=== PATIENT | male | born 1965 | race Caucasian/White ===

== ENCOUNTER 2018-01-24 17:20 | Emergency (ER) | payer SELFPAY ==
[~2018-01-24] VITALS: Ht 167.6 cm; Wt 82.0 kg
[2018-01-24] MEDS ORDERED: IBUPROFEN 800MG TABLET PO ONE (20:15)
[2018-01-24 20:24] VITALS: BP 125/75
== END 2018-01-24 20:25 | disposition home or self-care (01) ==
LOC: ER 17:20
DX: S69.81XA Other specified injuries of right wrist, hand and finger(s), initial encounter (principal); W22.8XXA Striking against or struck by other objects, initial encounter; Y93.89 Activity, other specified; Y92.89 Other specified places as the place of occurrence of the external cause
CPT/HCPCS: 29125; 73140; 99284

== ENCOUNTER 2021-07-23 22:25 | Inpatient (IN) | payer MEDICARE, MEDICAID ==
[~2021-07-23] VITALS: Ht 175.3 cm; Wt 68.0 kg
[2021-07-23] MEDS ORDERED: SODIUM CHLORIDE 0.9% 1000ML BAG (SEPSIS BOLUS) IV ONE (23:30)
[2021-07-23 23:58] LABS: HEMATOCRIT. 29.9 % (42.0-52.0); MEAN CORPUSCULAR HEMOGLOBIN 29.2 pg (28.0-32.0); MEAN CORPUSCULAR VOLUME 87.2 fL (80.0-94.0); MEAN PLATELET VOLUME 7.5 fl (7.4-10.4); PLATELET 607 x1000/uL (130-400); RED BLOOD CELL COUNT 3.42 mill/uL (4.7-6.1); RED CELL DISTRIBUTION WIDTH 14.2 % (11.6-14.6)
[2021-07-24] LABS: CHLORIDE 92 mEq/L (98-107)
[2021-07-24] MEDS ORDERED: PIPERACILLIN/TAZ 3.375G PREMIX 50 ML IV SCH (00:45)
[2021-07-24] MEDS ORDERED: VANCOMYCIN 1G PREMIX 200 ML IV SCH ×2 (00:45→12:00)
[2021-07-24] MEDS ORDERED: PIPERACILLIN/TAZOBACTAM 3.375 G in DEXTROSE 5% WATER 50 ML IV SCH (03:00)
[2021-07-24 05:29] LABS: PLATELET ESTIMATE INCREASED
[2021-07-24 07:56] LABS: CLARITY URINE CLEAR (CLEAR); COLOR URINE YELLOW (YELLOW); KETONES URINE TRACE (NEGATIVE); LEUKOCYTE ESTERASE URINE NEGATIVE (NEGATIVE); NITRITE URINE NEGATIVE (NEGATIVE); OCCULT BLOOD URINE 1+ (NEGATIVE); PH URINE 5.5 (4.5-8.0); PROTEIN URINE 1+ (NEGATIVE); SPECIFIC GRAVITY URINE 1.034 (1.005-1.030)
[2021-07-24 08:32] LABS: *AMPHETAMINES SCREEN URINE PRESUMTIVE POSITIVE (NEGATIVE); *BARBITURATES SCREEN URINE NEGATIVE (NEGATIVE); *BENZODIAZEPINES SCREEN URINE NEGATIVE (NEGATIVE); *COCAINE SCREEN URINE NEGATIVE (NEGATIVE)
[2021-07-24 08:33] LABS: CANNABINOID URINE SCREEN NEGATIVE (NEGATIVE); METHADONE URINE SCREEN NEGATIVE (NEGATIVE); OPIATES URINE SCREEN PRESUMTIVE POSITIVE (NEGATIVE); PHENCYCLIDINE URINE SCREEN NEGATIVE (NEGATIVE)
[2021-07-24] MEDS ORDERED: ONDANSETRON HCL 4MG/2ML INJ IV PRN (09:30)
[2021-07-24 10:00] VITALS: BP 95/56
[2021-07-24 12:00] VITALS: BP 96/60
[2021-07-24] MEDS: PIPERACILLIN/TAZOBACTAM 3.375 G in DEXTROSE 5% WATER 50 ML IV SCH ×2 (13:51→21:54)
[2021-07-24 16:00] VITALS: BP 93/61
[2021-07-24] MEDS ORDERED: BENZ100C86 PO (16:51)
[2021-07-24] MEDS ORDERED: ALBU6.7H9 INH (16:51)
[2021-07-24] MEDS: ENOXAPARIN 40MG/0.4ML SYR SUBCUT SCH (17:59)
[2021-07-24 20:00] VITALS: BP 89/54
[2021-07-24] MEDS: VANCOMYCIN 1G PREMIX 200 ML IV SCH (20:13)
[2021-07-24] MEDS ORDERED: DEXTROSE 50% WATER 50ML SYRINGE IV PRN (21:15)
[2021-07-25] VITALS (40 sets, daily range): BP systolic 80–107; BP diastolic 52–68
[2021-07-25 03:38] LABS: MEAN CORPUSCULAR HEMOGLOBIN 28.6 pg (28.0-32.0); MEAN CORPUSCULAR VOLUME 86.1 fL (80.0-94.0); MEAN PLATELET VOLUME 7.8 fl (7.4-10.4); PLATELET 536 x1000/uL (130-400); RED BLOOD CELL COUNT 3.14 mill/uL (4.7-6.1); RED CELL DISTRIBUTION WIDTH 14.4 % (11.6-14.6)
[2021-07-25 03:52] LABS: CHLORIDE 95 mEq/L (98-107)
[2021-07-25] MEDS: VANCOMYCIN 1G PREMIX 200 ML IV SCH ×2 (06:48→20:28)
[2021-07-25] MEDS: PIPERACILLIN/TAZOBACTAM 3.375 G in DEXTROSE 5% WATER 50 ML IV SCH ×3 (06:49→21:59)
[2021-07-25] MEDS: BLOOD SUGAR DIAGNOSTIC STRIP TEST SCH ×4 (06:49→21:51)
[2021-07-25] MEDS: INSULIN LISPRO 100 UNITS/ML SUBCUT SCH ×4 (07:47→22:00)
[2021-07-25] MEDS: IPRATROPIUM/ALBUTEROL 0.5-3(2.5)MG/3ML NEB HHN SCH ×3 (08:53→23:55)
[2021-07-25 09:25] LABS: BG BASE EXCESS 3.9 mmol/L (-2.0-2.0); BG CARBOXYHEMOGLOBIN 0.1 % (0.5-1.5); BG DEOXYHEMOGLOBIN 15.7 % (0.0-5.0); BG FRACTION INSPIRED OXYGEN 100; BG HCO3 ACT 29.8 mmol/L (22.0-26.0); BG METHEMOGLOBIN 0.3 % (0.0-1.5); BG OXYGEN SATURATION 84.2 % (92.0-98.5); BG OXYHEMOGLOBIN 83.9 % (94.0-97.0); BG PH 7.376 (7.350-7.450); BG PO2 48.8 mmHg (75.0-100.0); BG SAMPLE SITE RIGHT RADIAL; BG TOTAL HEMOGLOBIN 9.9 g/dL (12.0-18.0); BG VENT MODE MASK - NRB
[2021-07-25 11:08] LABS: BG BASE EXCESS 2.8 mmol/L (-2.0-2.0); BG CARBOXYHEMOGLOBIN 0.3 % (0.5-1.5); BG DEOXYHEMOGLOBIN 8.6 % (0.0-5.0); BG FRACTION INSPIRED OXYGEN 100; BG HCO3 ACT 27.7 mmol/L (22.0-26.0); BG OXYGEN SATURATION 91.4 % (92.0-98.5); BG OXYHEMOGLOBIN 91.1 % (94.0-97.0); BG PCO2 44.3 mmHg (35.0-45.0); BG PH 7.414 (7.350-7.450); BG PO2 61.4 mmHg (75.0-100.0); BG SAMPLE SITE RIGHT RADIAL; BG TOTAL HEMOGLOBIN 9.5 g/dL (12.0-18.0); BG VENT MODE MASK - BIPAP
[2021-07-25] MEDS ORDERED: PHENYLEPHRINE 50 MG in DEXT 5% WATER 245 ML IV PRN (11:45)
[2021-07-25] MEDS: SODIUM CHLORIDE 0.9% 1,000 ML IV SCH ×3 (12:00→13:00)
[2021-07-25] MEDS ORDERED: INSULIN GLARGINE 100 UNITS/ML SUBCUT NR (12:00)
[2021-07-25 16:13] LABS: PLATELET ESTIMATE INCREASED
[2021-07-25] MEDS: ENOXAPARIN 40MG/0.4ML SYR SUBCUT SCH (17:20)
[2021-07-25] MEDS: INSULIN GLARGINE 100 UNITS/ML SUBCUT SCH (22:00)
[2021-07-26] VITALS (74 sets, daily range): BP systolic 75–123; BP diastolic 45–74
[2021-07-26] MEDS: ACETAMINOPHEN 325MG TABLET PO PRN (00:20)
[2021-07-26] MEDS: IPRATROPIUM/ALBUTEROL 0.5-3(2.5)MG/3ML NEB HHN SCH ×5 (04:00→20:27)
[2021-07-26 05:51] LABS: CHLORIDE 99 mEq/L (98-107)
[2021-07-26] MEDS: PIPERACILLIN/TAZOBACTAM 3.375 G in DEXTROSE 5% WATER 50 ML IV SCH ×3 (06:01→21:00)
[2021-07-26] MEDS: SODIUM CHLORIDE 0.9% 1,000 ML IV SCH ×2 (06:02→16:42)
[2021-07-26 06:38] LABS: HEMATOCRIT. 22.9 % (42.0-52.0); HEMOGLOBIN. 7.8 g/dL (14.0-18.0); MEAN CORPUSCULAR HEMOGLOBIN 29.3 pg (28.0-32.0); MEAN CORPUSCULAR VOLUME 85.8 fL (80.0-94.0); PLATELET 459 x1000/uL (130-400); RED BLOOD CELL COUNT 2.67 mill/uL (4.7-6.1); RED CELL DISTRIBUTION WIDTH 14.2 % (11.6-14.6)
[2021-07-26] MEDS: BLOOD SUGAR DIAGNOSTIC STRIP TEST SCH ×4 (06:50→21:00)
[2021-07-26] MEDS: INSULIN LISPRO 100 UNITS/ML SUBCUT SCH ×4 (06:56→21:00)
[2021-07-26] MEDS: VANCOMYCIN 1G PREMIX 200 ML IV SCH (08:49)
[2021-07-26 09:03] LABS: PLATELET ESTIMATE INCREASED
[2021-07-26 09:36] LABS: BG CARBOXYHEMOGLOBIN 0.4 % (0.5-1.5); BG DEOXYHEMOGLOBIN 0.3 % (0.0-5.0); BG FRACTION INSPIRED OXYGEN 100; BG HCO3 ACT 25.8 mmol/L (22.0-26.0); BG METHEMOGLOBIN 0.3 % (0.0-1.5); BG OXYGEN SATURATION 99.7 % (92.0-98.5); BG PCO2 47.4 mmHg (35.0-45.0); BG PH 7.353 (7.350-7.450); BG PO2 176.9 mmHg (75.0-100.0); BG SAMPLE SITE RIGHT RADIAL; BG TOTAL HEMOGLOBIN 8.6 g/dL (12.0-18.0); BG TOTAL RESPIRATORY RATE 37 b/min; BG VENT MODE MASK - BIPAP
[2021-07-26] MEDS ORDERED: SODIUM CHLORIDE 10% FOR INH 15ML VIAL NEB INH NR (12:00)
[2021-07-26] MEDS: MIDODRINE HCL 5MG TABLET PO SCH ×2 (12:09→16:43)
[2021-07-26] MEDS: INSULIN GLARGINE 100 UNITS/ML SUBCUT SCH ×2 (12:11→22:06)
[2021-07-26] MEDS ORDERED: LIDOCAINE HCL/PF 1% 10 MG/ML 5ML VIAL ONE (12:49)
[2021-07-26] MEDS ORDERED: BUPIVACAINE HCL 0.25% (2.5MG/ML) 50ML INFIL NR (15:00)
[2021-07-26] MEDS ORDERED: LIDOCAINE HCL 1% 30ML VIAL (10MG/ML) INFIL NR (15:00)
[2021-07-26] MEDS: ENOXAPARIN 40MG/0.4ML SYR SUBCUT SCH (16:42)
[2021-07-27] VITALS (48 sets, daily range): BP systolic 89–121; BP diastolic 52–69
[2021-07-27] MEDS ORDERED: VANCOMYCIN 1G PREMIX 200 ML IV SCH
[2021-07-27] MEDS: ACETYLCYSTEINE 100MG/ML 10% VIAL 4ML INH SCH ×3 (00:23→15:57)
[2021-07-27] MEDS: IPRATROPIUM/ALBUTEROL 0.5-3(2.5)MG/3ML NEB HHN SCH ×6 (00:23→21:34)
[2021-07-27] MEDS: SODIUM CHLORIDE 0.9% 1,000 ML IV SCH (04:17)
[2021-07-27] MEDS: PIPERACILLIN/TAZOBACTAM 3.375 G in DEXTROSE 5% WATER 50 ML IV SCH ×3 (05:38→21:44)
[2021-07-27 05:48] LABS: CHLORIDE 99 mEq/L (98-107)
[2021-07-27 05:50] LABS: HEMATOCRIT. 22.4 % (42.0-52.0); HEMOGLOBIN. 7.7 g/dL (14.0-18.0); LYMPHOCYTES % 8.3 % (20.0-50.0); MEAN CORPUSCULAR HEMOGLOBIN 29.5 pg (28.0-32.0); MEAN CORPUSCULAR VOLUME 86.1 fL (80.0-94.0); MEAN PLATELET VOLUME 7.7 fl (7.4-10.4); MONOCYTES % 10.9 % (2.0-8.0); NEUTROPHILS % 80.8 % (40.0-76.0); PLATELET 409 x1000/uL (130-400); RED CELL DISTRIBUTION WIDTH 14.7 % (11.6-14.6)
[2021-07-27] MEDS: BLOOD SUGAR DIAGNOSTIC STRIP TEST SCH ×4 (06:08→21:31)
[2021-07-27] MEDS: INSULIN LISPRO 100 UNITS/ML SUBCUT SCH ×4 (06:35→21:00)
[2021-07-27] MEDS: ZINC SULFATE 220 MG ( 50 ) CAPSULE PO SCH (08:28)
[2021-07-27] MEDS: MIDODRINE HCL 5MG TABLET PO SCH ×3 (08:28→16:37)
[2021-07-27] MEDS: ASCORBIC ACID 500 MG TABLET PO SCH (08:29)
[2021-07-27 09:20] LABS: BG BASE EXCESS -1.1 mmol/L (-2.0-2.0); BG CARBOXYHEMOGLOBIN 0.3 % (0.5-1.5); BG DEOXYHEMOGLOBIN 0.3 % (0.0-5.0); BG FRACTION INSPIRED OXYGEN 100; BG HCO3 ACT 23.5 mmol/L (22.0-26.0); BG METHEMOGLOBIN 0.2 % (0.0-1.5); BG OXYGEN SATURATION 99.7 % (92.0-98.5); BG OXYHEMOGLOBIN 99.2 % (94.0-97.0); BG PCO2 38.2 mmHg (35.0-45.0); BG PH 7.406 (7.350-7.450); BG PO2 224.6 mmHg (75.0-100.0); BG SAMPLE SITE RIGHT RADIAL; BG TOTAL HEMOGLOBIN 8.6 g/dL (12.0-18.0); BG TOTAL RESPIRATORY RATE 23 b/min; BG VENT MODE MASK - BIPAP
[2021-07-27] MEDS: INSULIN GLARGINE 100 UNITS/ML SUBCUT SCH ×2 (10:32→22:22)
[2021-07-27] MEDS ORDERED: VANCOMYCIN 750MG PREMIX 150 ML IV SCH (11:00)
[2021-07-27] MEDS: ACETAMINOPHEN 325MG TABLET PO PRN (11:04)
[2021-07-27] MEDS: ENOXAPARIN 40MG/0.4ML SYR SUBCUT SCH (16:38)
[2021-07-28] VITALS (49 sets, daily range): BP systolic 101–134; BP diastolic 57–76
[2021-07-28] MEDS: IPRATROPIUM/ALBUTEROL 0.5-3(2.5)MG/3ML NEB HHN SCH ×6 (01:42→20:55)
[2021-07-28] MEDS: ACETYLCYSTEINE 100MG/ML 10% VIAL 4ML INH SCH ×3 (01:42→16:10)
[2021-07-28] MEDS: PIPERACILLIN/TAZOBACTAM 3.375 G in DEXTROSE 5% WATER 50 ML IV SCH ×3 (05:36→21:41)
[2021-07-28 05:52] LABS: HEMATOCRIT. 22.4 % (42.0-52.0); HEMOGLOBIN. 7.4 g/dL (14.0-18.0); MEAN CORPUSCULAR HEMOGLOBIN 28.3 pg (28.0-32.0); MEAN CORPUSCULAR VOLUME 86.1 fL (80.0-94.0); MEAN PLATELET VOLUME 7.7 fl (7.4-10.4); PLATELET 387 x1000/uL (130-400); RED CELL DISTRIBUTION WIDTH 15.1 % (11.6-14.6)
[2021-07-28 06:11] LABS: CHLORIDE 98 mEq/L (98-107)
[2021-07-28] MEDS: BLOOD SUGAR DIAGNOSTIC STRIP TEST SCH ×4 (06:30→21:34)
[2021-07-28] MEDS: INSULIN LISPRO 100 UNITS/ML SUBCUT SCH ×4 (07:00→21:40)
[2021-07-28] MEDS: ACETAMINOPHEN 325MG TABLET PO PRN ×3 (07:47→21:41)
[2021-07-28] MEDS: ASCORBIC ACID 500 MG TABLET PO SCH (08:43)
[2021-07-28] MEDS: ZINC SULFATE 220 MG ( 50 ) CAPSULE PO SCH (08:43)
[2021-07-28] MEDS: MIDODRINE HCL 5MG TABLET PO SCH ×3 (08:43→17:12)
[2021-07-28] MEDS: GUAIFENESIN 600MG ER TABLET PO PRN (08:43)
[2021-07-28] MEDS: INSULIN GLARGINE 100 UNITS/ML SUBCUT SCH ×2 (09:42→21:40)
[2021-07-28 14:30] LABS: NUCLEATED RED BLOOD CELLS 1 /100 WBC; PLATELET ESTIMATE NORMAL
[2021-07-28] MEDS: SODIUM CHLORIDE 3% FOR INH 4ML UD NEB INH SCH ×2 (16:47→23:20)
[2021-07-28] MEDS: ENOXAPARIN 40MG/0.4ML SYR SUBCUT SCH (17:11)
[2021-07-28 18:40] LABS: HEMATOCRIT 22.8 % (42.0-52.0); HEMOGLOBIN 7.5 g/dL (14.0-18.0)
[2021-07-29] VITALS (44 sets, daily range): BP systolic 114–133; BP diastolic 61–78
[2021-07-29] MEDS: ACETYLCYSTEINE 100MG/ML 10% VIAL 4ML INH SCH ×2 (00:18→17:49)
[2021-07-29] MEDS: SODIUM CHLORIDE 3% FOR INH 4ML UD NEB INH SCH (00:19)
[2021-07-29] MEDS: IPRATROPIUM/ALBUTEROL 0.5-3(2.5)MG/3ML NEB HHN SCH ×4 (00:19→21:04)
[2021-07-29 00:48] LABS: HEMATOCRIT 24.7 % (42.0-52.0); HEMOGLOBIN 8.3 g/dL (14.0-18.0)
[2021-07-29] MEDS: PIPERACILLIN/TAZOBACTAM 3.375 G in DEXTROSE 5% WATER 50 ML IV SCH ×3 (06:11→21:12)
[2021-07-29] MEDS: BLOOD SUGAR DIAGNOSTIC STRIP TEST SCH ×4 (06:11→21:01)
[2021-07-29] MEDS: INSULIN LISPRO 100 UNITS/ML SUBCUT SCH ×4 (06:15→21:13)
[2021-07-29 06:28] LABS: HEMATOCRIT. 25.3 % (42.0-52.0); HEMOGLOBIN. 8.6 g/dL (14.0-18.0); MEAN CORPUSCULAR VOLUME 85.2 fL (80.0-94.0); MEAN PLATELET VOLUME 7.8 fl (7.4-10.4); PLATELET 377 x1000/uL (130-400); RED BLOOD CELL COUNT 2.97 mill/uL (4.7-6.1); RED CELL DISTRIBUTION WIDTH 14.9 % (11.6-14.6)
[2021-07-29 06:32] LABS: CHLORIDE 96 mEq/L (98-107)
[2021-07-29 06:53] LABS: PLATELET ESTIMATE NORMAL
[2021-07-29 07:54] LABS: BG BASE EXCESS 4.5 mmol/L (-2.0-2.0); BG CARBOXYHEMOGLOBIN 0.3 % (0.5-1.5); BG DEOXYHEMOGLOBIN 3.7 % (0.0-5.0); BG METHEMOGLOBIN 0.3 % (0.0-1.5); BG OXYGEN SATURATION 96.3 % (92.0-98.5); BG OXYHEMOGLOBIN 95.7 % (94.0-97.0); BG PCO2 37.1 mmHg (35.0-45.0); BG PH 7.496 (7.350-7.450); BG PO2 72.8 mmHg (75.0-100.0); BG SAMPLE SITE LEFT RADIAL; BG TOTAL HEMOGLOBIN 8.6 g/dL (12.0-18.0); BG VENT MODE MASK - BIPAP
[2021-07-29] MEDS: ASCORBIC ACID 500 MG TABLET PO SCH (10:01)
[2021-07-29] MEDS: MIDODRINE HCL 5MG TABLET PO SCH ×3 (10:01→17:02)
[2021-07-29] MEDS: ZINC SULFATE 220 MG ( 50 ) CAPSULE PO SCH (10:01)
[2021-07-29] MEDS: INSULIN GLARGINE 100 UNITS/ML SUBCUT SCH ×2 (10:06→21:12)
[2021-07-29] MEDS: ACETAMINOPHEN 325MG TABLET PO PRN (11:57)
[2021-07-29 13:28] LABS: HEMATOCRIT 24.9 % (42.0-52.0); HEMOGLOBIN 8.5 g/dL (14.0-18.0)
[2021-07-29] MEDS: ENOXAPARIN 40MG/0.4ML SYR SUBCUT SCH (17:03)
[2021-07-29 20:13] LABS: HEMATOCRIT 28.7 % (42.0-52.0); HEMOGLOBIN 9.7 g/dL (14.0-18.0)
[2021-07-30] VITALS (13 sets, daily range): BP systolic 115–129; BP diastolic 62–73
[2021-07-30] MEDS: ACETAMINOPHEN 325MG TABLET PO PRN ×4 (00:06→21:08)
[2021-07-30 01:01] LABS: HEMATOCRIT 24.9 % (42.0-52.0); HEMOGLOBIN 8.3 g/dL (14.0-18.0)
[2021-07-30] MEDS: IPRATROPIUM/ALBUTEROL 0.5-3(2.5)MG/3ML NEB HHN SCH ×7 (01:16→23:57)
[2021-07-30] MEDS: ACETYLCYSTEINE 100MG/ML 10% VIAL 4ML INH SCH ×3 (01:17→23:58)
[2021-07-30] MEDS: PIPERACILLIN/TAZOBACTAM 3.375 G in DEXTROSE 5% WATER 50 ML IV SCH ×3 (05:10→21:09)
[2021-07-30] MEDS ORDERED: BLOOD SUGAR DIAGNOSTIC STRIP TEST SCH (06:30)
[2021-07-30 06:53] LABS: HEMATOCRIT. 24.2 % (42.0-52.0); HEMOGLOBIN. 8.1 g/dL (14.0-18.0); MEAN CORPUSCULAR HEMOGLOBIN 28.6 pg (28.0-32.0); MEAN CORPUSCULAR VOLUME 84.9 fL (80.0-94.0); MEAN PLATELET VOLUME 7.8 fl (7.4-10.4); PLATELET 350 x1000/uL (130-400); RED BLOOD CELL COUNT 2.85 mill/uL (4.7-6.1); RED CELL DISTRIBUTION WIDTH 14.5 % (11.6-14.6)
[2021-07-30] MEDS: BLOOD SUGAR DIAGNOSTIC STRIP TEST SCH ×7 (07:00→20:33)
[2021-07-30 07:07] LABS: CHLORIDE 95 mEq/L (98-107)
[2021-07-30] MEDS: ZINC SULFATE 220 MG ( 50 ) CAPSULE PO SCH (08:14)
[2021-07-30] MEDS: ASCORBIC ACID 500 MG TABLET PO SCH (08:14)
[2021-07-30] MEDS: INSULIN LISPRO 100 UNITS/ML SUBCUT SCH ×4 (08:17→21:09)
[2021-07-30] MEDS: MIDODRINE HCL 5MG TABLET PO SCH ×3 (08:17→19:14)
[2021-07-30] MEDS ORDERED: VANCOMYCIN 1.25GM PMX (XELLIA) 250 ML IV SCH (13:00)
[2021-07-30 13:04] LABS: PLATELET ESTIMATE NORMAL
[2021-07-30] MEDS: INSULIN GLARGINE 100 UNITS/ML SUBCUT SCH ×2 (14:15→21:16)
[2021-07-30 16:59] LABS: HEMATOCRIT 23.8 % (42.0-52.0)
[2021-07-30] MEDS: ENOXAPARIN 40MG/0.4ML SYR SUBCUT SCH (19:11)
[2021-07-30 20:35] LABS: HEMATOCRIT 24.2 % (42.0-52.0); HEMOGLOBIN 8.1 g/dL (14.0-18.0)
[2021-07-30] MEDS: GUAIFENESIN 600MG ER TABLET PO PRN (21:09)
[2021-07-31] VITALS (11 sets, daily range): BP systolic 109–132; BP diastolic 55–68
[2021-07-31] MEDS ORDERED: VANCOMYCIN 750 MG in DEXT 5% WATER 250 ML IV SCH (01:00)
[2021-07-31 01:28] LABS: HEMATOCRIT 22.9 % (42.0-52.0); HEMOGLOBIN 7.9 g/dL (14.0-18.0)
[2021-07-31] MEDS: IPRATROPIUM/ALBUTEROL 0.5-3(2.5)MG/3ML NEB HHN SCH ×5 (03:45→21:30)
[2021-07-31] MEDS: PIPERACILLIN/TAZOBACTAM 3.375 G in DEXTROSE 5% WATER 50 ML IV SCH ×3 (05:52→22:05)
[2021-07-31 06:56] LABS: HEMATOCRIT. 24.2 % (42.0-52.0); HEMOGLOBIN. 8.1 g/dL (14.0-18.0); MEAN CORPUSCULAR HEMOGLOBIN 28.6 pg (28.0-32.0); MEAN CORPUSCULAR VOLUME 85.1 fL (80.0-94.0); MEAN PLATELET VOLUME 7.6 fl (7.4-10.4); PLATELET 352 x1000/uL (130-400); RED BLOOD CELL COUNT 2.84 mill/uL (4.7-6.1); RED CELL DISTRIBUTION WIDTH 14.7 % (11.6-14.6)
[2021-07-31 07:08] LABS: CHLORIDE 96 mEq/L (98-107)
[2021-07-31] MEDS: BLOOD SUGAR DIAGNOSTIC STRIP TEST SCH ×4 (07:30→20:33)
[2021-07-31] MEDS: ACETAMINOPHEN 325MG TABLET PO PRN ×3 (07:46→20:26)
[2021-07-31] MEDS: ACETYLCYSTEINE 100MG/ML 10% VIAL 4ML INH SCH ×2 (07:53→15:40)
[2021-07-31] MEDS: INSULIN LISPRO 100 UNITS/ML SUBCUT SCH ×4 (08:00→20:36)
[2021-07-31] MEDS: ASCORBIC ACID 500 MG TABLET PO SCH (08:49)
[2021-07-31] MEDS: ZINC SULFATE 220 MG ( 50 ) CAPSULE PO SCH (08:49)
[2021-07-31] MEDS: MIDODRINE HCL 5MG TABLET PO SCH ×3 (08:50→18:20)
[2021-07-31] MEDS ORDERED: BUPIVACAINE HCL/PF 0.25% (2.5MG/ML) 10ML INFIL SCH (10:00)
[2021-07-31] MEDS ORDERED: LIDOCAINE HCL 1% 50ML VIAL (10MG/ML) INFIL SCH (10:00)
[2021-07-31] MEDS: INSULIN GLARGINE 100 UNITS/ML SUBCUT SCH ×2 (10:33→20:36)
[2021-07-31 12:59] LABS: HEMATOCRIT 24.7 % (42.0-52.0); HEMOGLOBIN 8.3 g/dL (14.0-18.0)
[2021-07-31] MEDS ORDERED: AZITHROMYCIN 500 MG TABLET PO NR (17:00)
[2021-07-31] MEDS: ENOXAPARIN 40MG/0.4ML SYR SUBCUT SCH (18:19)
[2021-07-31] MEDS: GUAIFENESIN 600MG ER TABLET PO PRN (21:27)
[2021-07-31 22:28] LABS: BG BASE EXCESS 4.5 mmol/L (-2.0-2.0); BG CARBOXYHEMOGLOBIN 0.3 % (0.5-1.5); BG DEOXYHEMOGLOBIN 7.2 % (0.0-5.0); BG FRACTION INSPIRED OXYGEN 40; BG HCO3 ACT 28.5 mmol/L (22.0-26.0); BG METHEMOGLOBIN 0.1 % (0.0-1.5); BG OXYGEN SATURATION 92.8 % (92.0-98.5); BG OXYHEMOGLOBIN 92.4 % (94.0-97.0); BG PCO2 40.4 mmHg (35.0-45.0); BG PH 7.467 (7.350-7.450); BG PO2 65.6 mmHg (75.0-100.0); BG SAMPLE SITE LEFT RADIAL; BG TOTAL HEMOGLOBIN 9.9 g/dL (12.0-18.0); BG VENT MODE MASK - BIPAP
[2021-08-01] VITALS (12 sets, daily range): BP systolic 108–133; BP diastolic 56–83
[2021-08-01] MEDS: IPRATROPIUM/ALBUTEROL 0.5-3(2.5)MG/3ML NEB HHN SCH ×6 (00:52→20:10)
[2021-08-01 00:55] LABS: HEMOGLOBIN 8.2 g/dL (14.0-18.0)
[2021-08-01] MEDS: PIPERACILLIN/TAZOBACTAM 3.375 G in DEXTROSE 5% WATER 50 ML IV SCH ×3 (05:11→21:15)
[2021-08-01 06:40] LABS: HEMATOCRIT 24.3 % (42.0-52.0)
[2021-08-01 06:50] LABS: CHLORIDE 92 mEq/L (98-107)
[2021-08-01] MEDS: ACETYLCYSTEINE 100MG/ML 10% VIAL 4ML INH SCH ×2 (07:28→15:23)
[2021-08-01] MEDS: BLOOD SUGAR DIAGNOSTIC STRIP TEST SCH ×4 (07:30→21:30)
[2021-08-01 07:59] LABS: PLATELET ESTIMATE NORMAL
[2021-08-01] MEDS: MIDODRINE HCL 5MG TABLET PO SCH ×3 (09:03→17:37)
[2021-08-01] MEDS: ZINC SULFATE 220 MG ( 50 ) CAPSULE PO SCH (09:03)
[2021-08-01] MEDS: ASCORBIC ACID 500 MG TABLET PO SCH (09:03)
[2021-08-01] MEDS: AZITHROMYCIN 250 MG TABLET PO SCH (09:03)
[2021-08-01] MEDS: INSULIN LISPRO 100 UNITS/ML SUBCUT SCH ×4 (09:04→21:33)
[2021-08-01] MEDS: ACETAMINOPHEN 325MG TABLET PO PRN ×2 (11:36→16:20)
[2021-08-01] MEDS: INSULIN GLARGINE 100 UNITS/ML SUBCUT SCH ×2 (11:40→21:34)
[2021-08-01 13:40] LABS: HEMATOCRIT. 24.8 % (42.0-52.0); HEMOGLOBIN. 8.4 g/dL (14.0-18.0); MEAN CORPUSCULAR HEMOGLOBIN 28.6 pg (28.0-32.0); MEAN CORPUSCULAR VOLUME 85.1 fL (80.0-94.0); MEAN PLATELET VOLUME 7.5 fl (7.4-10.4); PLATELET 396 x1000/uL (130-400); RED BLOOD CELL COUNT 2.92 mill/uL (4.7-6.1); RED CELL DISTRIBUTION WIDTH 14.8 % (11.6-14.6)
[2021-08-01] MEDS: ENOXAPARIN 40MG/0.4ML SYR SUBCUT SCH (17:37)
[2021-08-01] MEDS: GUAIFENESIN 600MG ER TABLET PO SCH (21:15)
[2021-08-02] VITALS (44 sets, daily range): BP systolic 11–147; BP diastolic 53–93
[2021-08-02] MEDS: IPRATROPIUM/ALBUTEROL 0.5-3(2.5)MG/3ML NEB HHN SCH ×6 (00:10→20:45)
[2021-08-02] MEDS: ACETYLCYSTEINE 100MG/ML 10% VIAL 4ML INH SCH ×3 (00:10→16:20)
[2021-08-02] MEDS: PIPERACILLIN/TAZOBACTAM 3.375 G in DEXTROSE 5% WATER 50 ML IV SCH ×4 (05:08→22:17)
[2021-08-02] MEDS: METOPROLOL TARTRATE 50MG TABLET PO SCH ×2 (06:50→21:57)
[2021-08-02 07:16] LABS: HEMATOCRIT. 24.8 % (42.0-52.0); HEMOGLOBIN. 8.3 g/dL (14.0-18.0); MEAN CORPUSCULAR VOLUME 86.7 fL (80.0-94.0); MEAN PLATELET VOLUME 7.4 fl (7.4-10.4); PLATELET 455 x1000/uL (130-400); RED BLOOD CELL COUNT 2.86 mill/uL (4.7-6.1); RED CELL DISTRIBUTION WIDTH 14.5 % (11.6-14.6)
[2021-08-02] MEDS: BLOOD SUGAR DIAGNOSTIC STRIP TEST SCH ×3 (07:30→18:11)
[2021-08-02] MEDS ORDERED: SUCCINYLCHOLINE CHLORIDE 200MG/10ML IV ONE (07:46)
[2021-08-02] MEDS ORDERED: SODIUM CHLORIDE 0.9% 10ML VIAL ONE (07:46)
[2021-08-02] MEDS ORDERED: VECURONIUM BROMIDE 10 MG/VIAL IV ONE (07:46)
[2021-08-02 07:58] LABS: CHLORIDE 93 mEq/L (98-107)
[2021-08-02 08:06] LABS: PLATELET ESTIMATE NORMAL
[2021-08-02 08:13] LABS: BG BASE EXCESS 4.8 mmol/L (-2.0-2.0); BG CARBOXYHEMOGLOBIN 0.3 % (0.5-1.5); BG DEOXYHEMOGLOBIN 0.7 % (0.0-5.0); BG FRACTION INSPIRED OXYGEN 100; BG HCO3 ACT 33.2 mmol/L (22.0-26.0); BG METHEMOGLOBIN 0.4 % (0.0-1.5); BG OXYGEN SATURATION 99.3 % (92.0-98.5); BG OXYHEMOGLOBIN 98.6 % (94.0-97.0); BG PCO2 75.7 mmHg (35.0-45.0); BG PO2 173.2 mmHg (75.0-100.0); BG SAMPLE SITE RIGHT RADIAL; BG TOTAL HEMOGLOBIN 9.3 g/dL (12.0-18.0); BG VENT MODE MASK - BIPAP
[2021-08-02] MEDS: ASCORBIC ACID 500 MG TABLET PO SCH (08:34)
[2021-08-02] MEDS: GUAIFENESIN 600MG ER TABLET PO SCH (08:34)
[2021-08-02] MEDS: ZINC SULFATE 220 MG ( 50 ) CAPSULE PO SCH (08:36)
[2021-08-02] MEDS: AZITHROMYCIN 250 MG TABLET PO SCH (08:36)
[2021-08-02] MEDS: MIDODRINE HCL 5MG TABLET PO SCH ×3 (08:36→18:11)
[2021-08-02] MEDS: INSULIN LISPRO 100 UNITS/ML SUBCUT SCH ×3 (08:37→18:12)
[2021-08-02] MEDS: INSULIN GLARGINE 100 UNITS/ML SUBCUT SCH ×2 (10:45→21:56)
[2021-08-02] MEDS ORDERED: LIDOCAINE HCL 1% 20ML VIAL (Pyxis) INJ INFIL NR (11:00)
[2021-08-02] MEDS ORDERED: METHYLPREDNISOLONE SOD SUCC 40 MG/ML VIAL IV SCH (11:30)
[2021-08-02 13:10] LABS: BG BASE EXCESS 8.7 mmol/L (-2.0-2.0); BG CARBOXYHEMOGLOBIN 0.3 % (0.5-1.5); BG DEOXYHEMOGLOBIN 6.5 % (0.0-5.0); BG FRACTION INSPIRED OXYGEN 45; BG HCO3 ACT 35.3 mmol/L (22.0-26.0); BG METHEMOGLOBIN 0.3 % (0.0-1.5); BG OXYGEN SATURATION 93.5 % (92.0-98.5); BG OXYHEMOGLOBIN 92.9 % (94.0-97.0); BG PCO2 61.3 mmHg (35.0-45.0); BG PH 7.378 (7.350-7.450); BG PO2 64.6 mmHg (75.0-100.0); BG SAMPLE SITE LEFT RADIAL; BG TOTAL HEMOGLOBIN 9.2 g/dL (12.0-18.0); BG VENT MODE MASK - BIPAP
[2021-08-02] MEDS: NOREPINEPHRINE 32 MG in DEXT 5% WATER 218 ML IV PRN (16:25)
[2021-08-02] MEDS ORDERED: FENTANYL CITRATE/PF 1,000 MCG in SODIUM CHLORIDE 0.9% 80 ML IV PRN (16:30)
[2021-08-02] MEDS: FENTANYL 2500MCG/250ML PMX 250 ML IV PRN (17:23)
[2021-08-02] MEDS: PROPOFOL 10MG/ML 100ML 100 ML IV PRN (17:29)
[2021-08-02] MEDS: GUAIFENESIN 200MG/10ML SUGAR FREE UDC PO SCH ×3 (18:10→23:58)
[2021-08-02] MEDS: ENOXAPARIN 40MG/0.4ML SYR SUBCUT SCH (18:10)
[2021-08-02 18:28] LABS: BG CARBOXYHEMOGLOBIN 0.3 % (0.5-1.5); BG DEOXYHEMOGLOBIN 1.3 % (0.0-5.0); BG FRACTION INSPIRED OXYGEN 85; BG HCO3 ACT 30.8 mmol/L (22.0-26.0); BG METHEMOGLOBIN 0.3 % (0.0-1.5); BG OXYGEN SATURATION 98.7 % (92.0-98.5); BG OXYHEMOGLOBIN 98.1 % (94.0-97.0); BG PCO2 52.6 mmHg (35.0-45.0); BG PH 7.386 (7.350-7.450); BG PO2 120.9 mmHg (75.0-100.0); BG SAMPLE SITE LEFT BRACHIAL; BG TOTAL HEMOGLOBIN 9.4 g/dL (12.0-18.0); BG VENT MODE PRVC
[2021-08-02 18:29] LABS: PLATELET ESTIMATE INCREASED
[2021-08-02] MEDS: FAMOTIDINE 20MG TABLET PO SCH (21:57)
[2021-08-02] MEDS: METHYLPREDNISOLONE SOD SUCC 40 MG/ML VIAL IV SCH (21:57)
[2021-08-03] VITALS (95 sets, daily range): BP systolic 85–145; BP diastolic 50–79
[2021-08-03] MEDS: IPRATROPIUM/ALBUTEROL 0.5-3(2.5)MG/3ML NEB HHN SCH ×6 (00:16→20:11)
[2021-08-03] MEDS: ACETYLCYSTEINE 100MG/ML 10% VIAL 4ML INH SCH ×3 (00:16→15:10)
[2021-08-03] MEDS: PROPOFOL 10MG/ML 100ML 100 ML IV PRN ×4 (00:41→18:51)
[2021-08-03] MEDS: BLOOD SUGAR DIAGNOSTIC STRIP TEST SCH ×4 (00:59→17:20)
[2021-08-03] MEDS: GUAIFENESIN 200MG/10ML SUGAR FREE UDC PO SCH ×5 (03:44→21:54)
[2021-08-03] MEDS: ACETAMINOPHEN 325MG TABLET PO PRN ×2 (04:07→09:18)
[2021-08-03] MEDS: METHYLPREDNISOLONE SOD SUCC 40 MG/ML VIAL IV SCH ×3 (05:55→21:53)
[2021-08-03] MEDS: PIPERACILLIN/TAZOBACTAM 3.375 G in DEXTROSE 5% WATER 50 ML IV SCH ×2 (05:56→13:12)
[2021-08-03] MEDS: INSULIN LISPRO 100 UNITS/ML SUBCUT SCH ×4 (05:56→17:19)
[2021-08-03 06:50] LABS: CHLORIDE 94 mEq/L (98-107)
[2021-08-03 07:14] LABS: HEMATOCRIT. 24.2 % (42.0-52.0); HEMOGLOBIN. 8.2 g/dL (14.0-18.0); MEAN CORPUSCULAR VOLUME 85.1 fL (80.0-94.0); MEAN PLATELET VOLUME 7.6 fl (7.4-10.4); PLATELET 594 x1000/uL (130-400); RED BLOOD CELL COUNT 2.84 mill/uL (4.7-6.1); RED CELL DISTRIBUTION WIDTH 14.8 % (11.6-14.6)
[2021-08-03] MEDS: METOPROLOL TARTRATE 50MG TABLET PO SCH ×2 (09:00→21:00)
[2021-08-03 09:14] LABS: BG BASE EXCESS 7.6 mmol/L (-2.0-2.0); BG CARBOXYHEMOGLOBIN 0.3 % (0.5-1.5); BG DEOXYHEMOGLOBIN 0.5 % (0.0-5.0); BG FRACTION INSPIRED OXYGEN 70; BG HCO3 ACT 31.7 mmol/L (22.0-26.0); BG METHEMOGLOBIN 0.3 % (0.0-1.5); BG OXYGEN SATURATION 99.5 % (92.0-98.5); BG OXYHEMOGLOBIN 98.9 % (94.0-97.0); BG PCO2 42.3 mmHg (35.0-45.0); BG PH 7.492 (7.350-7.450); BG PO2 176.3 mmHg (75.0-100.0); BG SAMPLE SITE LEFT RADIAL; BG TOTAL HEMOGLOBIN 9.1 g/dL (12.0-18.0); BG VENT MODE PRVC
[2021-08-03] MEDS: ZINC SULFATE 220 MG ( 50 ) CAPSULE PO SCH (09:18)
[2021-08-03] MEDS: ASCORBIC ACID 500 MG TABLET PO SCH (09:18)
[2021-08-03] MEDS: MIDODRINE HCL 5MG TABLET PO SCH ×3 (09:19→17:18)
[2021-08-03] MEDS: AZITHROMYCIN 250 MG TABLET PO SCH (09:19)
[2021-08-03] MEDS: INSULIN GLARGINE 100 UNITS/ML SUBCUT SCH ×2 (09:21→21:55)
[2021-08-03 13:47] LABS: PLATELET ESTIMATE INCREASED
[2021-08-03] MEDS: ENOXAPARIN 40MG/0.4ML SYR SUBCUT SCH (17:19)
[2021-08-03] MEDS ORDERED: CEFTRIAXONE 1 G PREMIX 50 ML IV SCH (21:15)
[2021-08-03] MEDS: FAMOTIDINE 20MG TABLET PO SCH (21:53)
[2021-08-03] MEDS: CEFTRIAXONE 1,000 MG in DEXTROSE 5% WATER 50 ML IV SCH (22:12)
[2021-08-04] VITALS (95 sets, daily range): BP systolic 87–145; BP diastolic 50–85
[2021-08-04] MEDS: IPRATROPIUM/ALBUTEROL 0.5-3(2.5)MG/3ML NEB HHN SCH ×6 (00:17→21:10)
[2021-08-04] MEDS: ACETYLCYSTEINE 100MG/ML 10% VIAL 4ML INH SCH ×3 (00:17→15:18)
[2021-08-04] MEDS: GUAIFENESIN 200MG/10ML SUGAR FREE UDC PO SCH ×6 (00:35→20:08)
[2021-08-04] MEDS: INSULIN LISPRO 100 UNITS/ML SUBCUT SCH ×6 (00:35→19:16)
[2021-08-04] MEDS: BLOOD SUGAR DIAGNOSTIC STRIP TEST SCH ×4 (00:35→18:59)
[2021-08-04] MEDS: PROPOFOL 10MG/ML 100ML 100 ML IV PRN ×3 (01:01→11:05)
[2021-08-04] MEDS: METHYLPREDNISOLONE SOD SUCC 40 MG/ML VIAL IV SCH ×3 (05:37→21:22)
[2021-08-04] MEDS: ACETAMINOPHEN 325MG TABLET PO PRN ×3 (06:34→20:56)
[2021-08-04 06:53] LABS: CHLORIDE 96 mEq/L (98-107)
[2021-08-04 07:03] LABS: HEMATOCRIT. 24.7 % (42.0-52.0); HEMOGLOBIN. 8.4 g/dL (14.0-18.0); MEAN CORPUSCULAR HEMOGLOBIN 29.1 pg (28.0-32.0); MEAN CORPUSCULAR VOLUME 85.4 fL (80.0-94.0); MEAN PLATELET VOLUME 7.3 fl (7.4-10.4); PLATELET 694 x1000/uL (130-400); RED BLOOD CELL COUNT 2.89 mill/uL (4.7-6.1)
[2021-08-04] MEDS: METOPROLOL TARTRATE 50MG TABLET PO SCH ×2 (09:00→20:09)
[2021-08-04 09:05] LABS: PLATELET ESTIMATE INCREASED
[2021-08-04 09:23] LABS: BG BASE EXCESS 8.6 mmol/L (-2.0-2.0); BG CARBOXYHEMOGLOBIN 0.3 % (0.5-1.5); BG DEOXYHEMOGLOBIN 1.1 % (0.0-5.0); BG FRACTION INSPIRED OXYGEN 35; BG HCO3 ACT 32.8 mmol/L (22.0-26.0); BG METHEMOGLOBIN 0.2 % (0.0-1.5); BG OXYGEN SATURATION 98.9 % (92.0-98.5); BG OXYHEMOGLOBIN 98.4 % (94.0-97.0); BG PCO2 44.4 mmHg (35.0-45.0); BG PH 7.487 (7.350-7.450); BG PO2 132.3 mmHg (75.0-100.0); BG SAMPLE SITE LEFT BRACHIAL; BG TOTAL HEMOGLOBIN 8.6 g/dL (12.0-18.0); BG VENT MODE PRVC
[2021-08-04] MEDS: AZITHROMYCIN 250 MG TABLET PO SCH (09:24)
[2021-08-04] MEDS: ZINC SULFATE 220 MG ( 50 ) CAPSULE PO SCH (09:24)
[2021-08-04] MEDS: ASCORBIC ACID 500 MG TABLET PO SCH (09:24)
[2021-08-04] MEDS: MIDODRINE HCL 5MG TABLET PO SCH ×3 (09:24→18:58)
[2021-08-04] MEDS: INSULIN GLARGINE 100 UNITS/ML SUBCUT SCH ×2 (11:10→21:21)
[2021-08-04] MEDS ORDERED: PROPOFOL 10MG/ML 100ML 100 ML IV PRN ×2 (12:45)
[2021-08-04] MEDS: ENOXAPARIN 40MG/0.4ML SYR SUBCUT SCH (18:58)
[2021-08-04] MEDS: FAMOTIDINE 20MG TABLET PO SCH (20:08)
[2021-08-04] MEDS: CEFTRIAXONE 1,000 MG in DEXTROSE 5% WATER 50 ML IV SCH (21:31)
[2021-08-05] VITALS (69 sets, daily range): BP systolic 81–121; BP diastolic 49–69
[2021-08-05] MEDS: BLOOD SUGAR DIAGNOSTIC STRIP TEST SCH ×5 (00:13→23:54)
[2021-08-05] MEDS: GUAIFENESIN 200MG/10ML SUGAR FREE UDC PO SCH ×6 (00:17→22:18)
[2021-08-05] MEDS: INSULIN LISPRO 100 UNITS/ML SUBCUT SCH ×8 (00:18→23:54)
[2021-08-05] MEDS: ACETAMINOPHEN 325MG TABLET PO PRN ×2 (02:33→22:47)
[2021-08-05] MEDS: FENTANYL 2500MCG/250ML PMX 250 ML IV PRN (04:56)
[2021-08-05] MEDS: METHYLPREDNISOLONE SOD SUCC 40 MG/ML VIAL IV SCH ×3 (04:58→22:19)
[2021-08-05] MEDS: IPRATROPIUM/ALBUTEROL 0.5-3(2.5)MG/3ML NEB HHN SCH ×5 (05:00→20:43)
[2021-08-05 05:50] LABS: HEMATOCRIT. 24.7 % (42.0-52.0); HEMOGLOBIN. 8.3 g/dL (14.0-18.0); MEAN CORPUSCULAR VOLUME 85.9 fL (80.0-94.0); MEAN PLATELET VOLUME 7.3 fl (7.4-10.4); PLATELET 626 x1000/uL (130-400); RED BLOOD CELL COUNT 2.88 mill/uL (4.7-6.1)
[2021-08-05 06:10] LABS: CHLORIDE 100 mEq/L (98-107)
[2021-08-05 08:01] LABS: PLATELET ESTIMATE INCREASED
[2021-08-05 08:56] LABS: BG BASE EXCESS 3.7 mmol/L (-2.0-2.0); BG CARBOXYHEMOGLOBIN 0.3 % (0.5-1.5); BG DEOXYHEMOGLOBIN 3.1 % (0.0-5.0); BG FRACTION INSPIRED OXYGEN 40; BG HCO3 ACT 25.4 mmol/L (22.0-26.0); BG METHEMOGLOBIN 0.2 % (0.0-1.5); BG OXYGEN SATURATION 96.9 % (92.0-98.5); BG OXYHEMOGLOBIN 96.4 % (94.0-97.0); BG PH 7.575 (7.350-7.450); BG PO2 80.4 mmHg (75.0-100.0); BG SAMPLE SITE RIGHT RADIAL; BG TOTAL HEMOGLOBIN 9.3 g/dL (12.0-18.0); BG VENT MODE VENT - AC
[2021-08-05] MEDS: METOPROLOL TARTRATE 50MG TABLET PO SCH ×2 (09:00→21:00)
[2021-08-05] MEDS: ASCORBIC ACID 500 MG TABLET PO SCH (09:22)
[2021-08-05] MEDS: MIDODRINE HCL 5MG TABLET PO SCH ×3 (09:23→17:35)
[2021-08-05] MEDS: INSULIN GLARGINE 100 UNITS/ML SUBCUT SCH ×2 (09:24→22:24)
[2021-08-05] MEDS: ZINC SULFATE 220 MG ( 50 ) CAPSULE PO SCH (09:25)
[2021-08-05] MEDS ORDERED: LACTULOSE 20G/30ML UDC PO PRN (11:30)
[2021-08-05] MEDS: ACETYLCYSTEINE 100MG/ML 10% VIAL 4ML INH SCH (12:32)
[2021-08-05] MEDS: ENOXAPARIN 40MG/0.4ML SYR SUBCUT SCH (17:36)
[2021-08-05] MEDS: CEFTRIAXONE 1,000 MG in DEXTROSE 5% WATER 50 ML IV SCH (22:18)
[2021-08-05] MEDS: FAMOTIDINE 20MG TABLET PO SCH (22:18)
[2021-08-05] MEDS: PROPOFOL 10MG/ML 100ML 100 ML IV PRN (22:44)
[2021-08-06] VITALS (72 sets, daily range): BP systolic 81–128; BP diastolic 48–76
[2021-08-06] MEDS: GUAIFENESIN 200MG/10ML SUGAR FREE UDC PO SCH ×6 (00:30→21:08)
[2021-08-06] MEDS: FENTANYL 2500MCG/250ML PMX 250 ML IV PRN (01:14)
[2021-08-06] MEDS: IPRATROPIUM/ALBUTEROL 0.5-3(2.5)MG/3ML NEB HHN SCH ×6 (01:28→20:11)
[2021-08-06] MEDS: ACETYLCYSTEINE 100MG/ML 10% VIAL 4ML INH SCH ×2 (01:28→08:58)
[2021-08-06] MEDS: PROPOFOL 10MG/ML 100ML 100 ML IV PRN (03:49)
[2021-08-06 05:52] LABS: HEMATOCRIT. 25.7 % (42.0-52.0); HEMOGLOBIN. 8.4 g/dL (14.0-18.0); MEAN CORPUSCULAR HEMOGLOBIN 28.4 pg (28.0-32.0); MEAN PLATELET VOLUME 7.1 fl (7.4-10.4); PLATELET 706 x1000/uL (130-400); RED BLOOD CELL COUNT 2.95 mill/uL (4.7-6.1); RED CELL DISTRIBUTION WIDTH 15.1 % (11.6-14.6)
[2021-08-06] MEDS: ACETAMINOPHEN 325MG TABLET PO PRN ×3 (05:54→21:38)
[2021-08-06] MEDS: METHYLPREDNISOLONE SOD SUCC 40 MG/ML VIAL IV SCH ×3 (05:54→21:29)
[2021-08-06] MEDS: INSULIN LISPRO 100 UNITS/ML SUBCUT SCH ×6 (05:56→18:00)
[2021-08-06] MEDS: BLOOD SUGAR DIAGNOSTIC STRIP TEST SCH ×4 (05:58→23:47)
[2021-08-06 06:10] LABS: CHLORIDE 104 mEq/L (98-107)
[2021-08-06 07:18] LABS: PLATELET ESTIMATE INCREASED
[2021-08-06 08:19] LABS: BG BASE EXCESS 4.4 mmol/L (-2.0-2.0); BG CARBOXYHEMOGLOBIN 0.3 % (0.5-1.5); BG DEOXYHEMOGLOBIN 2.5 % (0.0-5.0); BG FRACTION INSPIRED OXYGEN 40; BG HCO3 ACT 28.3 mmol/L (22.0-26.0); BG METHEMOGLOBIN 0.3 % (0.0-1.5); BG OXYGEN SATURATION 97.5 % (92.0-98.5); BG OXYHEMOGLOBIN 96.9 % (94.0-97.0); BG PCO2 39.3 mmHg (35.0-45.0); BG PH 7.475 (7.350-7.450); BG PO2 97.3 mmHg (75.0-100.0); BG SAMPLE SITE RIGHT RADIAL; BG TOTAL HEMOGLOBIN 8.5 g/dL (12.0-18.0); BG VENT MODE VENT - AC
[2021-08-06] MEDS: METOPROLOL TARTRATE 50MG TABLET PO SCH ×2 (08:25→21:00)
[2021-08-06] MEDS: DOCUSATE SODIUM SUGAR FREE 100MG/10ML UDC NG SCH (08:45)
[2021-08-06] MEDS: ZINC SULFATE 220 MG ( 50 ) CAPSULE PO SCH (08:46)
[2021-08-06] MEDS: MIDODRINE HCL 5MG TABLET PO SCH ×3 (08:46→18:32)
[2021-08-06] MEDS: ASCORBIC ACID 500 MG TABLET PO SCH (08:46)
[2021-08-06] MEDS: INSULIN GLARGINE 100 UNITS/ML SUBCUT SCH (09:53)
[2021-08-06 13:25] LABS: BG BASE EXCESS 6.7 mmol/L (-2.0-2.0); BG CARBOXYHEMOGLOBIN 0.3 % (0.5-1.5); BG DEOXYHEMOGLOBIN 3.8 % (0.0-5.0); BG HCO3 ACT 30.3 mmol/L (22.0-26.0); BG METHEMOGLOBIN 0.2 % (0.0-1.5); BG OXYGEN SATURATION 96.2 % (92.0-98.5); BG OXYHEMOGLOBIN 95.7 % (94.0-97.0); BG PCO2 39.3 mmHg (35.0-45.0); BG PH 7.505 (7.350-7.450); BG PO2 79.4 mmHg (75.0-100.0); BG SAMPLE SITE RIGHT RADIAL; BG TOTAL HEMOGLOBIN 9.6 g/dL (12.0-18.0); BG VENT MODE VENT - CPAP
[2021-08-06] MEDS: FLUCONAZOLE 400MG/200ML BAG 200 ML IV SCH (14:45)
[2021-08-06] MEDS: ENOXAPARIN 40MG/0.4ML SYR SUBCUT SCH (18:32)
[2021-08-06 21:07] LABS: BG BASE EXCESS 3.6 mmol/L (-2.0-2.0); BG CARBOXYHEMOGLOBIN 0.2 % (0.5-1.5); BG DEOXYHEMOGLOBIN 30.1 % (0.0-5.0); BG FRACTION INSPIRED OXYGEN 40; BG OXYGEN SATURATION 69.8 % (92.0-98.5); BG OXYHEMOGLOBIN 69.7 % (94.0-97.0); BG PCO2 55.7 mmHg (35.0-45.0); BG PH 7.349 (7.350-7.450); BG PO2 37.9 mmHg (75.0-100.0); BG SAMPLE SITE RIGHT RADIAL; BG TOTAL HEMOGLOBIN 9.1 g/dL (12.0-18.0); BG VENT MODE COOL AEROSOL
[2021-08-06] MEDS: FAMOTIDINE 20MG TABLET PO SCH (21:08)
[2021-08-06] MEDS: CEFTRIAXONE 1,000 MG in DEXTROSE 5% WATER 50 ML IV SCH (22:18)
[2021-08-06 22:42] LABS: BG BASE EXCESS 0.3 mmol/L (-2.0-2.0); BG CARBOXYHEMOGLOBIN 0.1 % (0.5-1.5); BG DEOXYHEMOGLOBIN 0.4 % (0.0-5.0); BG FRACTION INSPIRED OXYGEN 100; BG HCO3 ACT 25.3 mmol/L (22.0-26.0); BG METHEMOGLOBIN 0.4 % (0.0-1.5); BG OXYGEN SATURATION 99.6 % (92.0-98.5); BG OXYHEMOGLOBIN 99.1 % (94.0-97.0); BG PCO2 42.3 mmHg (35.0-45.0); BG PH 7.394 (7.350-7.450); BG PO2 255.1 mmHg (75.0-100.0); BG SAMPLE SITE LEFT RADIAL; BG TOTAL HEMOGLOBIN 8.9 g/dL (12.0-18.0); BG VENT MODE MASK - BIPAP
[2021-08-07] VITALS (77 sets, daily range): BP systolic 51–182; BP diastolic 32–127
[2021-08-07] MEDS: GUAIFENESIN 200MG/10ML SUGAR FREE UDC PO SCH ×6 (00:11→21:02)
[2021-08-07] MEDS: INSULIN LISPRO 100 UNITS/ML SUBCUT SCH ×5 (00:12→21:07)
[2021-08-07] MEDS: IPRATROPIUM/ALBUTEROL 0.5-3(2.5)MG/3ML NEB HHN SCH ×6 (00:22→20:06)
[2021-08-07] MEDS: ACETAMINOPHEN 325MG TABLET PO PRN ×2 (05:05→09:54)
[2021-08-07] MEDS: METHYLPREDNISOLONE SOD SUCC 40 MG/ML VIAL IV SCH ×3 (05:05→21:05)
[2021-08-07] MEDS: BLOOD SUGAR DIAGNOSTIC STRIP TEST SCH ×4 (05:09→21:05)
[2021-08-07 05:48] LABS: HEMATOCRIT. 24.5 % (42.0-52.0); HEMOGLOBIN. 8.3 g/dL (14.0-18.0); MEAN CORPUSCULAR HEMOGLOBIN 29.3 pg (28.0-32.0); MEAN CORPUSCULAR VOLUME 86.5 fL (80.0-94.0); PLATELET 591 x1000/uL (130-400); RED BLOOD CELL COUNT 2.83 mill/uL (4.7-6.1); RED CELL DISTRIBUTION WIDTH 15.3 % (11.6-14.6)
[2021-08-07 06:01] LABS: CHLORIDE 100 mEq/L (98-107)
[2021-08-07] MEDS: ASCORBIC ACID 500 MG TABLET PO SCH (08:03)
[2021-08-07] MEDS: DOCUSATE SODIUM SUGAR FREE 100MG/10ML UDC NG SCH (08:03)
[2021-08-07] MEDS: METOPROLOL TARTRATE 50MG TABLET PO SCH ×2 (08:04→21:04)
[2021-08-07] MEDS: MIDODRINE HCL 5MG TABLET PO SCH ×5 (08:04→17:29)
[2021-08-07] MEDS: ZINC SULFATE 220 MG ( 50 ) CAPSULE PO SCH (08:04)
[2021-08-07] MEDS: FLUCONAZOLE 400MG/200ML BAG 200 ML IV SCH (13:09)
[2021-08-07 14:23] LABS: PLATELET ESTIMATE INCREASED
[2021-08-07] MEDS: ENOXAPARIN 40MG/0.4ML SYR SUBCUT SCH (17:28)
[2021-08-07] MEDS: LORAZEPAM 2MG/ML CPJ IV PRN (18:46)
[2021-08-07] MEDS: FAMOTIDINE 20MG TABLET PO SCH (21:04)
[2021-08-07] MEDS: CEFTRIAXONE 1,000 MG in DEXTROSE 5% WATER 50 ML IV SCH (21:05)
[2021-08-07] MEDS: INSULIN GLARGINE 100 UNITS/ML SUBCUT SCH (21:07)
[2021-08-07] MEDS: NOREPINEPHRINE 32 MG in DEXT 5% WATER 218 ML IV PRN (23:55)
[2021-08-08] VITALS (108 sets, daily range): BP systolic 80–172; BP diastolic 49–102
[2021-08-08] MEDS: IPRATROPIUM/ALBUTEROL 0.5-3(2.5)MG/3ML NEB HHN SCH ×7 (00:18→23:52)
[2021-08-08 00:48] LABS: HEMATOCRIT. 27.6 % (42.0-52.0); HEMOGLOBIN. 8.7 g/dL (14.0-18.0); MEAN CORPUSCULAR HEMOGLOBIN 29.1 pg (28.0-32.0); MEAN CORPUSCULAR VOLUME 92.3 fL (80.0-94.0); RED BLOOD CELL COUNT 2.99 mill/uL (4.7-6.1); RED CELL DISTRIBUTION WIDTH 15.3 % (11.6-14.6)
[2021-08-08 00:51] LABS: CHLORIDE 97 mEq/L (98-107)
[2021-08-08] MEDS: PROPOFOL 10MG/ML 100ML 100 ML IV PRN ×3 (00:56→16:49)
[2021-08-08 01:05] LABS: BG BASE EXCESS -7.4 mmol/L (-2.0-2.0); BG CARBOXYHEMOGLOBIN 0.3 % (0.5-1.5); BG DEOXYHEMOGLOBIN 0.3 % (0.0-5.0); BG FRACTION INSPIRED OXYGEN 100; BG HCO3 ACT 20.6 mmol/L (22.0-26.0); BG METHEMOGLOBIN 0.2 % (0.0-1.5); BG OXYGEN SATURATION 99.7 % (92.0-98.5); BG OXYHEMOGLOBIN 99.2 % (94.0-97.0); BG PCO2 53.1 mmHg (35.0-45.0); BG PH 7.207 (7.350-7.450); BG PO2 418.5 mmHg (75.0-100.0); BG SAMPLE SITE RIGHT RADIAL; BG TOTAL HEMOGLOBIN 10.9 g/dL (12.0-18.0); BG TOTAL RESPIRATORY RATE 18 b/min; BG VENT MODE VENT - AC
[2021-08-08] MEDS ORDERED: SODIUM BICARBONATE 8.4% 1 MEQ/ML 50ML SYR IV SCH (01:30)
[2021-08-08 01:53] LABS: MEAN PLATELET VOLUME 8.2 fl (7.4-10.4)
[2021-08-08 01:54] LABS: PLATELET 786 x1000/uL (130-400)
[2021-08-08] MEDS: GUAIFENESIN 200MG/10ML SUGAR FREE UDC PO SCH ×6 (04:00→20:00)
[2021-08-08] MEDS: METHYLPREDNISOLONE SOD SUCC 40 MG/ML VIAL IV SCH ×3 (05:30→21:39)
[2021-08-08] MEDS ORDERED: ACETAMINOPHEN 650MG SUPP PR PRN (05:45)
[2021-08-08 06:14] LABS: HEMATOCRIT. 26.3 % (42.0-52.0); HEMOGLOBIN. 8.7 g/dL (14.0-18.0); MEAN CORPUSCULAR HEMOGLOBIN 28.3 pg (28.0-32.0); MEAN CORPUSCULAR VOLUME 85.6 fL (80.0-94.0); PLATELET 789 x1000/uL (130-400); RED BLOOD CELL COUNT 3.07 mill/uL (4.7-6.1); RED CELL DISTRIBUTION WIDTH 15.1 % (11.6-14.6)
[2021-08-08 06:21] LABS: CHLORIDE 97 mEq/L (98-107)
[2021-08-08 07:28] LABS: PLATELET ESTIMATE MARKEDLY INCREASED
[2021-08-08] MEDS: INSULIN LISPRO 100 UNITS/ML SUBCUT SCH ×3 (08:45→21:00)
[2021-08-08] MEDS: BLOOD SUGAR DIAGNOSTIC STRIP TEST SCH ×3 (08:48→21:00)
[2021-08-08] MEDS: METOPROLOL TARTRATE 50MG TABLET PO SCH ×2 (09:00→21:00)
[2021-08-08] MEDS ORDERED: SODIUM BICARBONATE 8.4% 1 MEQ/ML 50ML SYR IV ONE (09:14)
[2021-08-08] MEDS ORDERED: EPINEPHRINE 0.1MG/ML (1:10,000) 10ML SYR ONE (09:14)
[2021-08-08] MEDS ORDERED: DEXTROSE 50% WATER 50ML SYRINGE IV ONE (09:14)
[2021-08-08] MEDS ORDERED: ATROPINE SULFATE 1MG/10ML SYR ONE (09:14)
[2021-08-08] MEDS ORDERED: CALCIUM CHLORIDE 1GM/10ML SYR IV ONE (09:14)
[2021-08-08] MEDS: MIDODRINE HCL 5MG TABLET PO SCH ×3 (09:47→17:56)
[2021-08-08] MEDS: DOCUSATE SODIUM SUGAR FREE 100MG/10ML UDC NG SCH (09:47)
[2021-08-08] MEDS: ASCORBIC ACID 500 MG TABLET PO SCH (09:47)
[2021-08-08] MEDS: ZINC SULFATE 220 MG ( 50 ) CAPSULE PO SCH (09:47)
[2021-08-08] MEDS: INSULIN GLARGINE 100 UNITS/ML SUBCUT SCH ×2 (09:50→21:39)
[2021-08-08 10:30] LABS: BG BASE EXCESS 5.7 mmol/L (-2.0-2.0); BG CARBOXYHEMOGLOBIN 0.3 % (0.5-1.5); BG DEOXYHEMOGLOBIN 6.8 % (0.0-5.0); BG FRACTION INSPIRED OXYGEN 50; BG HCO3 ACT 28.8 mmol/L (22.0-26.0); BG METHEMOGLOBIN 0.3 % (0.0-1.5); BG OXYGEN SATURATION 93.2 % (92.0-98.5); BG OXYHEMOGLOBIN 92.6 % (94.0-97.0); BG PCO2 35.4 mmHg (35.0-45.0); BG PH 7.528 (7.350-7.450); BG PO2 63.7 mmHg (75.0-100.0); BG SAMPLE SITE RIGHT RADIAL; BG TOTAL HEMOGLOBIN 8.5 g/dL (12.0-18.0); BG VENT MODE VENT - AC
[2021-08-08] MEDS: ACETAMINOPHEN 325MG TABLET PO PRN (12:27)
[2021-08-08 13:09] LABS: PLATELET ESTIMATE INCREASED
[2021-08-08 13:55] LABS: BG BASE EXCESS 8.1 mmol/L (-2.0-2.0); BG CARBOXYHEMOGLOBIN 0.2 % (0.5-1.5); BG DEOXYHEMOGLOBIN 2.3 % (0.0-5.0); BG FRACTION INSPIRED OXYGEN 65; BG METHEMOGLOBIN 0.2 % (0.0-1.5); BG OXYGEN SATURATION 97.7 % (92.0-98.5); BG OXYHEMOGLOBIN 97.3 % (94.0-97.0); BG PCO2 36.3 mmHg (35.0-45.0); BG PH 7.549 (7.350-7.450); BG PO2 99.2 mmHg (75.0-100.0); BG SAMPLE SITE RIGHT RADIAL; BG VENT MODE VENT - AC
[2021-08-08] MEDS: FLUCONAZOLE 400MG/200ML BAG 200 ML IV SCH (14:00)
[2021-08-08] MEDS ORDERED: ATROPINE SULFATE 1MG/ML VIAL IV PRN (14:45)
[2021-08-08] MEDS: CEFEPIME 2,000 MG in DEXT 5% WATER 100 ML IV SCH (17:56)
[2021-08-08] MEDS: ENOXAPARIN 40MG/0.4ML SYR SUBCUT SCH (17:56)
[2021-08-08] MEDS: FAMOTIDINE 20MG TABLET PO SCH (21:39)
[2021-08-09] VITALS (93 sets, daily range): BP systolic 57–171; BP diastolic 34–94
[2021-08-09] MEDS: GUAIFENESIN 200MG/10ML SUGAR FREE UDC PO SCH ×6 (00:01→21:11)
[2021-08-09] MEDS: ACETAMINOPHEN 325MG TABLET PO PRN ×4 (00:08→21:10)
[2021-08-09] MEDS: IPRATROPIUM/ALBUTEROL 0.5-3(2.5)MG/3ML NEB HHN SCH ×5 (03:47→20:10)
[2021-08-09] MEDS: METHYLPREDNISOLONE SOD SUCC 40 MG/ML VIAL IV SCH ×3 (05:46→21:10)
[2021-08-09] MEDS: CEFEPIME 2,000 MG in DEXT 5% WATER 100 ML IV SCH ×2 (05:46→18:16)
[2021-08-09 06:14] LABS: EOSINOPHILS % 0.1 % (0.0-5.0); HEMATOCRIT. 26.6 % (42.0-52.0); HEMOGLOBIN. 8.9 g/dL (14.0-18.0); LYMPHOCYTES % 7.5 % (20.0-50.0); MEAN CORPUSCULAR HEMOGLOBIN 28.8 pg (28.0-32.0); MEAN CORPUSCULAR VOLUME 85.8 fL (80.0-94.0); MEAN PLATELET VOLUME 7.9 fl (7.4-10.4); MONOCYTES % 7.1 % (2.0-8.0); NEUTROPHILS % 84.3 % (40.0-76.0); PLATELET 468 x1000/uL (130-400); RED CELL DISTRIBUTION WIDTH 15.4 % (11.6-14.6)
[2021-08-09 06:35] LABS: CHLORIDE 97 mEq/L (98-107)
[2021-08-09] MEDS: NOREPINEPHRINE 32 MG in DEXT 5% WATER 218 ML IV PRN ×2 (07:18→22:09)
[2021-08-09] MEDS: BLOOD SUGAR DIAGNOSTIC STRIP TEST SCH ×4 (07:50→20:46)
[2021-08-09] MEDS: LORAZEPAM 2MG/ML CPJ IV PRN ×2 (08:10→13:33)
[2021-08-09 08:46] LABS: BG BASE EXCESS 5.6 mmol/L (-2.0-2.0); BG CARBOXYHEMOGLOBIN 0.3 % (0.5-1.5); BG DEOXYHEMOGLOBIN 1.6 % (0.0-5.0); BG FRACTION INSPIRED OXYGEN 65; BG HCO3 ACT 27.6 mmol/L (22.0-26.0); BG METHEMOGLOBIN 0.3 % (0.0-1.5); BG OXYGEN SATURATION 98.4 % (92.0-98.5); BG OXYHEMOGLOBIN 97.8 % (94.0-97.0); BG PCO2 30.5 mmHg (35.0-45.0); BG PH 7.574 (7.350-7.450); BG PO2 106.6 mmHg (75.0-100.0); BG SAMPLE SITE LEFT RADIAL; BG TOTAL HEMOGLOBIN 9.4 g/dL (12.0-18.0); BG VENT MODE VENT - AC
[2021-08-09] MEDS: DOCUSATE SODIUM SUGAR FREE 100MG/10ML UDC NG SCH (08:57)
[2021-08-09] MEDS: MIDODRINE HCL 5MG TABLET PO SCH ×3 (08:58→18:04)
[2021-08-09] MEDS: ZINC SULFATE 220 MG ( 50 ) CAPSULE PO SCH (09:00)
[2021-08-09] MEDS: METOPROLOL TARTRATE 50MG TABLET PO SCH ×2 (09:00→21:00)
[2021-08-09] MEDS: ASCORBIC ACID 500 MG TABLET PO SCH (09:00)
[2021-08-09] MEDS: INSULIN LISPRO 100 UNITS/ML SUBCUT SCH ×4 (09:01→21:00)
[2021-08-09] MEDS: INSULIN GLARGINE 100 UNITS/ML SUBCUT SCH ×2 (10:53→21:11)
[2021-08-09 13:05] LABS: HEMATOCRIT. 26.1 % (42.0-52.0); HEMOGLOBIN. 8.9 g/dL (14.0-18.0); MEAN CORPUSCULAR HEMOGLOBIN 29.2 pg (28.0-32.0); MEAN PLATELET VOLUME 7.3 fl (7.4-10.4); PLATELET 628 x1000/uL (130-400); RED BLOOD CELL COUNT 3.07 mill/uL (4.7-6.1); RED CELL DISTRIBUTION WIDTH 15.3 % (11.6-14.6)
[2021-08-09 13:31] LABS: CHLORIDE 96 mEq/L (98-107)
[2021-08-09 13:44] LABS: PLATELET ESTIMATE INCREASED
[2021-08-09] MEDS: FLUCONAZOLE 400MG/200ML BAG 200 ML IV SCH (13:50)
[2021-08-09] MEDS: ENOXAPARIN 40MG/0.4ML SYR SUBCUT SCH (18:04)
[2021-08-09] MEDS: FAMOTIDINE 20MG TABLET PO SCH (21:10)
[2021-08-10] VITALS (102 sets, daily range): BP systolic 50–197; BP diastolic 30–109
[2021-08-10] MEDS: IPRATROPIUM/ALBUTEROL 0.5-3(2.5)MG/3ML NEB HHN SCH ×6 (00:51→20:39)
[2021-08-10] MEDS: LORAZEPAM 2MG/ML CPJ IV PRN (01:10)
[2021-08-10 01:36] LABS: BG BASE EXCESS 3.7 mmol/L (-2.0-2.0); BG CARBOXYHEMOGLOBIN 0.3 % (0.5-1.5); BG DEOXYHEMOGLOBIN 1.3 % (0.0-5.0); BG FRACTION INSPIRED OXYGEN 60; BG HCO3 ACT 28.1 mmol/L (22.0-26.0); BG METHEMOGLOBIN 0.2 % (0.0-1.5); BG OXYGEN SATURATION 98.7 % (92.0-98.5); BG OXYHEMOGLOBIN 98.2 % (94.0-97.0); BG PCO2 42.2 mmHg (35.0-45.0); BG PH 7.442 (7.350-7.450); BG PO2 147.1 mmHg (75.0-100.0); BG SAMPLE SITE RIGHT RADIAL; BG VENT MODE VENT - AC
[2021-08-10] MEDS: GUAIFENESIN 200MG/10ML SUGAR FREE UDC PO SCH ×6 (04:00→21:57)
[2021-08-10] MEDS ORDERED: PROPOFOL 10MG/ML 100ML 100 ML IV PRN (04:30)
[2021-08-10] MEDS: ACETAMINOPHEN 325MG TABLET PO PRN (04:59)
[2021-08-10] MEDS: METHYLPREDNISOLONE SOD SUCC 40 MG/ML VIAL IV SCH ×3 (05:00→21:57)
[2021-08-10] MEDS: BLOOD SUGAR DIAGNOSTIC STRIP TEST SCH ×4 (05:00→21:00)
[2021-08-10] MEDS: CEFEPIME 2,000 MG in DEXT 5% WATER 100 ML IV SCH (05:14)
[2021-08-10 07:34] LABS: MEAN CORPUSCULAR HEMOGLOBIN 28.8 pg (28.0-32.0); MEAN CORPUSCULAR VOLUME 87.7 fL (80.0-94.0); MEAN PLATELET VOLUME 8.6 fl (7.4-10.4); PLATELET 514 x1000/uL (130-400); RED BLOOD CELL COUNT 2.35 mill/uL (4.7-6.1); RED CELL DISTRIBUTION WIDTH 15.3 % (11.6-14.6)
[2021-08-10 07:36] LABS: CHLORIDE 95 mEq/L (98-107)
[2021-08-10] MEDS ORDERED: SODIUM POLYSTYRENE SULFONATE 15 G/60 ML BOT NG NR (08:00)
[2021-08-10 08:19] LABS: HEMATOCRIT. 20.6 % (42.0-52.0); HEMOGLOBIN. 6.8 g/dL (14.0-18.0)
[2021-08-10 08:29] LABS: PLATELET ESTIMATE INCREASED
[2021-08-10 08:37] LABS: BG BASE EXCESS -8.7 mmol/L (-2.0-2.0); BG DEOXYHEMOGLOBIN 0.5 % (0.0-5.0); BG FRACTION INSPIRED OXYGEN 60; BG HCO3 ACT 18.5 mmol/L (22.0-26.0); BG METHEMOGLOBIN 0.7 % (0.0-1.5); BG OXYGEN SATURATION 99.5 % (92.0-98.5); BG OXYHEMOGLOBIN 98.8 % (94.0-97.0); BG PH 7.213 (7.350-7.450); BG PO2 217.4 mmHg (75.0-100.0); BG SAMPLE SITE LEFT BRACHIAL; BG TOTAL HEMOGLOBIN 7.7 g/dL (12.0-18.0); BG VENT MODE VENT - AC
[2021-08-10] MEDS: INSULIN LISPRO 100 UNITS/ML SUBCUT SCH ×4 (08:56→22:06)
[2021-08-10] MEDS ORDERED: SODIUM BICARBONATE 8.4% 1 MEQ/ML 50ML SYR IV SCH (09:00)
[2021-08-10] MEDS ORDERED: PHENYLEPHRINE 50 MG in DEXT 5% WATER 245 ML IV PRN (09:00)
[2021-08-10] MEDS: ASCORBIC ACID 500 MG TABLET PO SCH (09:00)
[2021-08-10] MEDS ORDERED: CALCIUM CHLORIDE 1GM/10ML SYR IV SCH (09:00)
[2021-08-10] MEDS ORDERED: SODIUM CHLORIDE 0.9% 500 ML IV SCH (09:00)
[2021-08-10] MEDS ORDERED: DIGOXIN 500MCG/2ML AMP IV SCH (09:00)
[2021-08-10] MEDS: DOCUSATE SODIUM SUGAR FREE 100MG/10ML UDC NG SCH (09:00)
[2021-08-10] MEDS: ZINC SULFATE 220 MG ( 50 ) CAPSULE PO SCH (09:00)
[2021-08-10] MEDS: MIDODRINE HCL 5MG TABLET PO SCH ×3 (09:00→18:21)
[2021-08-10] MEDS ORDERED: INSULIN REGULAR (HUMULIN R) 300UNITS/3ML VIAL IV SCH (09:00)
[2021-08-10] MEDS: METOPROLOL TARTRATE 50MG TABLET PO SCH ×2 (09:00→21:00)
[2021-08-10] MEDS: SODIUM CHLORIDE 0.9% 1,000 ML IV SCH (09:11)
[2021-08-10] MEDS: PHENYLEPHRINE 100 MG in DEXT 5% WATER 240 ML IV PRN ×2 (09:34→17:51)
[2021-08-10] MEDS: VASOPRESSIN 20 UNIT in SODIUM CHLORIDE 0.9% 99 ML IV PRN ×2 (09:38→17:50)
[2021-08-10] MEDS: PANTOPRAZOLE SODIUM 40 MG/VIAL IV SCH ×2 (09:42→09:43)
[2021-08-10] MEDS: INSULIN GLARGINE 100 UNITS/ML SUBCUT SCH ×2 (09:44→22:05)
[2021-08-10] MEDS ORDERED: CALCIUM GLUCONATE 1GM PREMIX 50 ML IV SCH (10:00)
[2021-08-10 10:13] LABS: INR 1.8; TOTAL IRON BINDING CAPACITY 210 ug/dL (250-450)
[2021-08-10 10:32] LABS: FOLIC ACID (FOLATE) SERUM >20 ng/mL ng/mL (>5.38)
[2021-08-10 10:43] LABS: VITAMIN B12 SERUM >2000 pg/mL pg/mL (211-911)
[2021-08-10] MEDS: FLUCONAZOLE 400MG/200ML BAG 200 ML IV SCH (13:00)
[2021-08-10 13:07] LABS: FERRITIN 2421 ng/mL (22-322)
[2021-08-10 13:16] LABS: BG BASE EXCESS -8.4 mmol/L (-2.0-2.0); BG CARBOXYHEMOGLOBIN 0.3 % (0.5-1.5); BG DEOXYHEMOGLOBIN 0.8 % (0.0-5.0); BG FRACTION INSPIRED OXYGEN 60; BG HCO3 ACT 18.7 mmol/L (22.0-26.0); BG METHEMOGLOBIN 0.3 % (0.0-1.5); BG OXYGEN SATURATION 99.2 % (92.0-98.5); BG OXYHEMOGLOBIN 98.6 % (94.0-97.0); BG PCO2 46.3 mmHg (35.0-45.0); BG PH 7.225 (7.350-7.450); BG PO2 184.3 mmHg (75.0-100.0); BG SAMPLE SITE LEFT BRACHIAL; BG TOTAL HEMOGLOBIN 8.2 g/dL (12.0-18.0); BG VENT MODE VENT - AC
[2021-08-10] MEDS: MEROPENEM 1,000 MG in SODIUM CHLORIDE 0.9% 100 ML IV SCH ×2 (17:05→22:15)
[2021-08-10] MEDS: NOREPINEPHRINE 32 MG in DEXT 5% WATER 218 ML IV PRN (17:51)
[2021-08-10] MEDS: FENTANYL 2500MCG/250ML PMX 250 ML IV PRN (19:30)
[2021-08-10 20:34] LABS: HEMATOCRIT 29.9 % (42.0-52.0); HEMOGLOBIN 10.1 g/dL (14.0-18.0); MEAN CORPUSCULAR HEMOGLOBIN 29.5 pg (28.0-32.0); MEAN CORPUSCULAR VOLUME 87.4 fL (80.0-94.0); PLATELET 333 x1000/uL (130-400); RED BLOOD CELL COUNT 3.42 mill/uL (4.7-6.1); RED CELL DISTRIBUTION WIDTH 14.9 % (11.6-14.6)
[2021-08-11] VITALS (79 sets, daily range): BP systolic 71–175; BP diastolic 41–85
[2021-08-11] MEDS: IPRATROPIUM/ALBUTEROL 0.5-3(2.5)MG/3ML NEB HHN SCH ×6 (01:20→20:40)
[2021-08-11 01:43] LABS: HEMATOCRIT 27.9 % (42.0-52.0); HEMOGLOBIN 9.5 g/dL (14.0-18.0)
[2021-08-11] MEDS: PHENYLEPHRINE 100 MG in DEXT 5% WATER 240 ML IV PRN ×3 (01:49→21:04)
[2021-08-11] MEDS: VASOPRESSIN 20 UNIT in SODIUM CHLORIDE 0.9% 99 ML IV PRN ×3 (01:50→21:05)
[2021-08-11] MEDS: ACETAMINOPHEN 325MG TABLET PO PRN ×2 (02:00→09:10)
[2021-08-11] MEDS: GUAIFENESIN 200MG/10ML SUGAR FREE UDC PO SCH ×6 (04:00→21:01)
[2021-08-11 05:27] LABS: HEMATOCRIT. 28.6 % (42.0-52.0); HEMOGLOBIN. 9.7 g/dL (14.0-18.0); MEAN CORPUSCULAR HEMOGLOBIN 29.4 pg (28.0-32.0); MEAN CORPUSCULAR VOLUME 86.7 fL (80.0-94.0); MEAN PLATELET VOLUME 8.7 fl (7.4-10.4); PLATELET 244 x1000/uL (130-400); RED CELL DISTRIBUTION WIDTH 14.9 % (11.6-14.6)
[2021-08-11] MEDS: SODIUM CHLORIDE 0.9% 1,000 ML IV SCH ×2 (05:53→23:40)
[2021-08-11] MEDS: METHYLPREDNISOLONE SOD SUCC 40 MG/ML VIAL IV SCH ×3 (05:56→23:39)
[2021-08-11] MEDS: MEROPENEM 1,000 MG in SODIUM CHLORIDE 0.9% 100 ML IV SCH ×3 (05:57→23:39)
[2021-08-11] MEDS: BLOOD SUGAR DIAGNOSTIC STRIP TEST SCH ×4 (06:18→23:39)
[2021-08-11] MEDS: INSULIN LISPRO 100 UNITS/ML SUBCUT SCH ×2 (06:25→12:50)
[2021-08-11 08:08] LABS: BG CARBOXYHEMOGLOBIN 0.2 % (0.5-1.5); BG DEOXYHEMOGLOBIN 1.1 % (0.0-5.0); BG FRACTION INSPIRED OXYGEN 60; BG HCO3 ACT 23.7 mmol/L (22.0-26.0); BG METHEMOGLOBIN 0.4 % (0.0-1.5); BG OXYGEN SATURATION 98.9 % (92.0-98.5); BG OXYHEMOGLOBIN 98.3 % (94.0-97.0); BG PCO2 39.1 mmHg (35.0-45.0); BG PO2 198.2 mmHg (75.0-100.0); BG SAMPLE SITE RIGHT BRACHIAL; BG TOTAL HEMOGLOBIN 10.3 g/dL (12.0-18.0); BG VENT MODE VENT - AC
[2021-08-11 08:33] LABS: PLATELET ESTIMATE NORMAL
[2021-08-11] MEDS ORDERED: SODIUM CHLORIDE 0.9% 500 ML IV ONE (09:00)
[2021-08-11] MEDS: METOPROLOL TARTRATE 50MG TABLET PO SCH (09:00)
[2021-08-11] MEDS: DOCUSATE SODIUM SUGAR FREE 100MG/10ML UDC NG SCH (09:00)
[2021-08-11] MEDS: PANTOPRAZOLE SODIUM 40 MG/VIAL IV SCH ×2 (09:09→18:43)
[2021-08-11] MEDS: ASCORBIC ACID 500 MG TABLET PO SCH (09:10)
[2021-08-11] MEDS: MIDODRINE HCL 5MG TABLET PO SCH ×3 (09:10→18:41)
[2021-08-11] MEDS: ZINC SULFATE 220 MG ( 50 ) CAPSULE PO SCH (09:11)
[2021-08-11] MEDS: INSULIN GLARGINE 100 UNITS/ML SUBCUT SCH ×2 (09:13→23:42)
[2021-08-11] MEDS ORDERED: SODIUM POLYSTYRENE SULFONATE 15 G/60 ML BOT PO NR (11:30)
[2021-08-11 13:12] LABS: HEMATOCRIT 28.6 % (42.0-52.0); HEMOGLOBIN 9.6 g/dL (14.0-18.0)
[2021-08-11] MEDS ORDERED: VANCOMYCIN 1.25GM PMX (XELLIA) 250 ML IV NR (14:00)
[2021-08-11] MEDS: FLUCONAZOLE 400MG/200ML BAG 200 ML IV SCH (15:00)
[2021-08-11] MEDS: FENTANYL 2500MCG/250ML PMX 250 ML IV PRN (15:09)
[2021-08-11] MEDS ORDERED: INSULIN LISPRO 100 UNITS/ML SUBCUT SCH (18:20)
[2021-08-11 19:00] LABS: HEMATOCRIT 27.6 % (42.0-52.0); HEMOGLOBIN 8.9 g/dL (14.0-18.0)
[2021-08-11] MEDS: NOREPINEPHRINE 32 MG in DEXT 5% WATER 218 ML IV PRN (21:03)
[2021-08-11] MEDS ORDERED: FENTANYL 2500MCG/250ML PMX 250 ML IV PRN (22:00)
[2021-08-11] MEDS ORDERED: FAMOTIDINE 20MG TABLET PO SCH (22:00)
[2021-08-12] VITALS (92 sets, daily range): BP systolic 84–142; BP diastolic 44–76
[2021-08-12] MEDS: IPRATROPIUM/ALBUTEROL 0.5-3(2.5)MG/3ML NEB HHN SCH ×7 (00:36→23:48)
[2021-08-12 05:30] LABS: HEMATOCRIT. 25.5 % (42.0-52.0); HEMOGLOBIN. 8.4 g/dL (14.0-18.0); MEAN CORPUSCULAR HEMOGLOBIN 29.2 pg (28.0-32.0); MEAN PLATELET VOLUME 9.1 fl (7.4-10.4); PLATELET 245 x1000/uL (130-400); RED BLOOD CELL COUNT 2.87 mill/uL (4.7-6.1); RED CELL DISTRIBUTION WIDTH 15.7 % (11.6-14.6)
[2021-08-12 05:40] LABS: CHLORIDE 109 mEq/L (98-107)
[2021-08-12 06:10] LABS: HIV SCREEN 4G Non Reactive (Non Reactive)
[2021-08-12] MEDS: BLOOD SUGAR DIAGNOSTIC STRIP TEST SCH ×4 (06:28→23:15)
[2021-08-12] MEDS: MEROPENEM 1,000 MG in SODIUM CHLORIDE 0.9% 100 ML IV SCH ×3 (06:28→22:09)
[2021-08-12] MEDS: METHYLPREDNISOLONE SOD SUCC 40 MG/ML VIAL IV SCH (06:29)
[2021-08-12] MEDS ORDERED: INSULIN LISPRO 100 UNITS/ML SUBCUT ONE (06:30)
[2021-08-12] MEDS: GUAIFENESIN 200MG/10ML SUGAR FREE UDC PO SCH ×6 (06:33→20:00)
[2021-08-12] MEDS: INSULIN LISPRO 100 UNITS/ML SUBCUT SCH ×6 (06:36→23:53)
[2021-08-12] MEDS: VASOPRESSIN 20 UNIT in SODIUM CHLORIDE 0.9% 99 ML IV PRN ×2 (07:06→12:48)
[2021-08-12] MEDS: FENTANYL 2500MCG/250ML PMX 250 ML IV PRN ×2 (07:11→17:29)
[2021-08-12] MEDS ORDERED: INSULIN REGULAR (HUMULIN R) 300UNITS/3ML VIAL SUBCUT SCH (08:00)
[2021-08-12 08:29] LABS: PLATELET ESTIMATE NORMAL
[2021-08-12 08:32] LABS: BG BASE EXCESS -7.8 mmol/L (-2.0-2.0); BG CARBOXYHEMOGLOBIN 0.3 % (0.5-1.5); BG DEOXYHEMOGLOBIN 0.7 % (0.0-5.0); BG FRACTION INSPIRED OXYGEN 60; BG HCO3 ACT 17.6 mmol/L (22.0-26.0); BG METHEMOGLOBIN 0.4 % (0.0-1.5); BG OXYGEN SATURATION 99.3 % (92.0-98.5); BG OXYHEMOGLOBIN 98.6 % (94.0-97.0); BG PCO2 35.1 mmHg (35.0-45.0); BG PH 7.317 (7.350-7.450); BG PO2 267.9 mmHg (75.0-100.0); BG SAMPLE SITE RIGHT RADIAL; BG TOTAL HEMOGLOBIN 8.9 g/dL (12.0-18.0); BG VENT MODE VENT - AC
[2021-08-12] MEDS: PANTOPRAZOLE SODIUM 40 MG/VIAL IV SCH ×2 (08:36→17:28)
[2021-08-12] MEDS: ASCORBIC ACID 500 MG TABLET PO SCH (08:36)
[2021-08-12] MEDS: ZINC SULFATE 220 MG ( 50 ) CAPSULE PO SCH (08:37)
[2021-08-12] MEDS: MIDODRINE HCL 5MG TABLET PO SCH ×3 (08:37→16:10)
[2021-08-12] MEDS: VANCOMYCIN 1GM PMX (XELLIA) 200 ML IV SCH (08:38)
[2021-08-12] MEDS: DOCUSATE SODIUM SUGAR FREE 100MG/10ML UDC NG SCH (08:38)
[2021-08-12 09:29] LABS: HEMATOCRIT 23.8 % (42.0-52.0); HEMOGLOBIN 7.9 g/dL (14.0-18.0)
[2021-08-12] MEDS: PHENYLEPHRINE 100 MG in DEXT 5% WATER 240 ML IV PRN ×2 (09:31→17:28)
[2021-08-12] MEDS: INSULIN GLARGINE 100 UNITS/ML SUBCUT SCH ×2 (11:06→22:09)
[2021-08-12] MEDS: FLUCONAZOLE 400MG/200ML BAG 200 ML IV SCH (12:35)
[2021-08-12] MEDS: SODIUM CHLORIDE 0.9% 1,000 ML IV SCH (17:39)
[2021-08-12] MEDS: ACETAMINOPHEN 325MG TABLET PO PRN (21:03)
[2021-08-13] VITALS (101 sets, daily range): BP systolic 88–153; BP diastolic 53–87
[2021-08-13] MEDS: GUAIFENESIN 200MG/10ML SUGAR FREE UDC PO SCH ×6 (01:50→21:56)
[2021-08-13] MEDS: VANCOMYCIN 1GM PMX (XELLIA) 200 ML IV SCH (01:51)
[2021-08-13] MEDS: IPRATROPIUM/ALBUTEROL 0.5-3(2.5)MG/3ML NEB HHN SCH ×5 (04:15→21:09)
[2021-08-13 05:50] LABS: HEMATOCRIT. 21.2 % (42.0-52.0); HEMOGLOBIN. 7.1 g/dL (14.0-18.0); MEAN CORPUSCULAR HEMOGLOBIN 29.8 pg (28.0-32.0); MEAN CORPUSCULAR VOLUME 89.2 fL (80.0-94.0); PLATELET 214 x1000/uL (130-400); RED BLOOD CELL COUNT 2.38 mill/uL (4.7-6.1); RED CELL DISTRIBUTION WIDTH 15.6 % (11.6-14.6)
[2021-08-13] MEDS: ACETAMINOPHEN 325MG TABLET PO PRN (05:58)
[2021-08-13] MEDS: PHENYLEPHRINE 100 MG in DEXT 5% WATER 240 ML IV PRN (05:58)
[2021-08-13] MEDS: BLOOD SUGAR DIAGNOSTIC STRIP TEST SCH ×3 (06:00→17:57)
[2021-08-13] MEDS: INSULIN LISPRO 100 UNITS/ML SUBCUT SCH ×3 (06:00→18:07)
[2021-08-13] MEDS: MEROPENEM 1,000 MG in SODIUM CHLORIDE 0.9% 100 ML IV SCH ×3 (06:00→21:56)
[2021-08-13 06:20] LABS: CHLORIDE 120 mEq/L (98-107)
[2021-08-13 06:43] LABS: INR 1.6; PROTHROMBIN TIME 16.9 sec (9.6-11.0)
[2021-08-13 07:53] LABS: PLATELET ESTIMATE NORMAL
[2021-08-13 08:57] LABS: BG BASE EXCESS -3.5 mmol/L (-2.0-2.0); BG CARBOXYHEMOGLOBIN 0.3 % (0.5-1.5); BG DEOXYHEMOGLOBIN 1.7 % (0.0-5.0); BG FRACTION INSPIRED OXYGEN 30; BG HCO3 ACT 20.8 mmol/L (22.0-26.0); BG METHEMOGLOBIN 0.3 % (0.0-1.5); BG OXYGEN SATURATION 98.3 % (92.0-98.5); BG OXYHEMOGLOBIN 97.7 % (94.0-97.0); BG PCO2 33.5 mmHg (35.0-45.0); BG PO2 111.9 mmHg (75.0-100.0); BG SAMPLE SITE RIGHT RADIAL; BG TOTAL HEMOGLOBIN 7.1 g/dL (12.0-18.0); BG VENT MODE VENT - AC
[2021-08-13] MEDS: PANTOPRAZOLE SODIUM 40 MG/VIAL IV SCH ×2 (09:18→18:05)
[2021-08-13] MEDS: SODIUM CHLORIDE 0.9% 1,000 ML IV SCH (09:18)
[2021-08-13] MEDS: METHYLPREDNISOLONE SOD SUCC 40 MG/ML VIAL IV SCH (09:18)
[2021-08-13] MEDS: DOCUSATE SODIUM SUGAR FREE 100MG/10ML UDC NG SCH (09:18)
[2021-08-13] MEDS: MIDODRINE HCL 5MG TABLET PO SCH ×3 (09:19→18:05)
[2021-08-13] MEDS: ZINC SULFATE 220 MG ( 50 ) CAPSULE PO SCH (09:19)
[2021-08-13] MEDS: ASCORBIC ACID 500 MG TABLET PO SCH (09:19)
[2021-08-13] MEDS: INSULIN GLARGINE 100 UNITS/ML SUBCUT SCH ×2 (09:20→21:55)
[2021-08-13] MEDS: DEXTROSE 5% WATER 1,000 ML IV SCH (12:35)
[2021-08-13] MEDS: FENTANYL 2500MCG/250ML PMX 250 ML IV PRN (15:20)
[2021-08-13 18:04] LABS: HEMATOCRIT 25.9 % (42.0-52.0); HEMOGLOBIN 8.6 g/dL (14.0-18.0)
[2021-08-13] MEDS: VANCOMYCIN 750MG PMX (XELLIA) 150 ML IV SCH (23:53)
[2021-08-14] VITALS (80 sets, daily range): BP systolic 85–145; BP diastolic 45–77
[2021-08-14] MEDS: DEXTROSE 5% WATER 1,000 ML IV SCH (00:06)
[2021-08-14] MEDS: IPRATROPIUM/ALBUTEROL 0.5-3(2.5)MG/3ML NEB HHN SCH ×6 (00:10→20:15)
[2021-08-14] MEDS: INSULIN LISPRO 100 UNITS/ML SUBCUT SCH ×4 (00:11→18:35)
[2021-08-14] MEDS: MEROPENEM 1,000 MG in SODIUM CHLORIDE 0.9% 100 ML IV SCH ×3 (05:35→21:16)
[2021-08-14] MEDS: GUAIFENESIN 200MG/10ML SUGAR FREE UDC PO SCH ×6 (05:35→21:15)
[2021-08-14] MEDS: BLOOD SUGAR DIAGNOSTIC STRIP TEST SCH ×4 (05:55→18:00)
[2021-08-14 06:16] LABS: HEMATOCRIT. 22.7 % (42.0-52.0); HEMOGLOBIN. 7.7 g/dL (14.0-18.0); MEAN CORPUSCULAR HEMOGLOBIN 30.2 pg (28.0-32.0); MEAN PLATELET VOLUME 9.3 fl (7.4-10.4); PLATELET 113 x1000/uL (130-400); RED BLOOD CELL COUNT 2.55 mill/uL (4.7-6.1); RED CELL DISTRIBUTION WIDTH 15.2 % (11.6-14.6)
[2021-08-14 06:27] LABS: INR 1.4; PROTHROMBIN TIME 14.4 sec (9.6-11.0)
[2021-08-14 06:35] LABS: CHLORIDE 116 mEq/L (98-107)
[2021-08-14 07:46] LABS: PLATELET ESTIMATE SLIGHTLY DECREASED
[2021-08-14] MEDS: DOCUSATE SODIUM SUGAR FREE 100MG/10ML UDC NG SCH (09:00)
[2021-08-14] MEDS: MIDODRINE HCL 5MG TABLET PO SCH ×3 (09:00→18:36)
[2021-08-14] MEDS: ZINC SULFATE 220 MG ( 50 ) CAPSULE PO SCH (09:56)
[2021-08-14] MEDS: METHYLPREDNISOLONE SOD SUCC 40 MG/ML VIAL IV SCH (09:56)
[2021-08-14] MEDS: ASCORBIC ACID 500 MG TABLET PO SCH (09:56)
[2021-08-14] MEDS: PANTOPRAZOLE SODIUM 40 MG/VIAL IV SCH ×2 (09:56→18:36)
[2021-08-14] MEDS: INSULIN GLARGINE 100 UNITS/ML SUBCUT SCH ×2 (10:00→21:26)
[2021-08-14] MEDS ORDERED: POTASSIUM CHLORIDE INJ 40 MEQ in DEXT 5% WATER 250 ML IV ONE (10:30)
[2021-08-14] MEDS ORDERED: POTASSIUM CHLORIDE 20MEQ/PACKET PO NR (10:30)
[2021-08-14] MEDS: KCL 20MEQ/100ML X 2 FOR TOTAL KCL 40MEQ/200ML IV SCH ×2 (14:30→17:59)
[2021-08-14] MEDS: ACETAMINOPHEN 325MG TABLET PO PRN (18:36)
[2021-08-14] MEDS: VANCOMYCIN 750MG PMX (XELLIA) 150 ML IV SCH (18:37)
[2021-08-14] MEDS: FENTANYL 2500MCG/250ML PMX 250 ML IV PRN (21:20)
[2021-08-15] VITALS (66 sets, daily range): BP systolic 71–150; BP diastolic 45–83
[2021-08-15] MEDS: IPRATROPIUM/ALBUTEROL 0.5-3(2.5)MG/3ML NEB HHN SCH ×5 (02:14→20:31)
[2021-08-15] MEDS: BLOOD SUGAR DIAGNOSTIC STRIP TEST SCH ×4 (06:00→17:58)
[2021-08-15] MEDS: INSULIN LISPRO 100 UNITS/ML SUBCUT SCH ×4 (06:00→18:00)
[2021-08-15 06:05] LABS: BASOPHILS % 0.4 % (0.0-2.0); HEMATOCRIT. 22.9 % (42.0-52.0); HEMOGLOBIN. 7.6 g/dL (14.0-18.0); LYMPHOCYTES % 7.2 % (20.0-50.0); MEAN CORPUSCULAR HEMOGLOBIN 29.4 pg (28.0-32.0); MEAN CORPUSCULAR VOLUME 88.1 fL (80.0-94.0); NEUTROPHILS % 88.4 % (40.0-76.0); PLATELET 104 x1000/uL (130-400)
[2021-08-15 06:09] LABS: CHLORIDE 115 mEq/L (98-107)
[2021-08-15] MEDS: GUAIFENESIN 200MG/10ML SUGAR FREE UDC PO SCH ×6 (06:21→21:02)
[2021-08-15] MEDS: MEROPENEM 1,000 MG in SODIUM CHLORIDE 0.9% 100 ML IV SCH ×3 (06:22→21:02)
[2021-08-15 08:01] LABS: BG BASE EXCESS 0.4 mmol/L (-2.0-2.0); BG CARBOXYHEMOGLOBIN 0.3 % (0.5-1.5); BG DEOXYHEMOGLOBIN 1.2 % (0.0-5.0); BG FRACTION INSPIRED OXYGEN 30; BG HCO3 ACT 23.8 mmol/L (22.0-26.0); BG METHEMOGLOBIN 0.3 % (0.0-1.5); BG OXYGEN SATURATION 98.8 % (92.0-98.5); BG OXYHEMOGLOBIN 98.2 % (94.0-97.0); BG PCO2 32.4 mmHg (35.0-45.0); BG PH 7.483 (7.350-7.450); BG PO2 139.1 mmHg (75.0-100.0); BG SAMPLE SITE RIGHT RADIAL; BG TOTAL HEMOGLOBIN 7.7 g/dL (12.0-18.0); BG VENT MODE VENT - AC
[2021-08-15] MEDS: DEXTROSE 5% WATER 1,000 ML IV SCH ×2 (09:05→21:10)
[2021-08-15] MEDS: ZINC SULFATE 220 MG ( 50 ) CAPSULE PO SCH (09:21)
[2021-08-15] MEDS: PANTOPRAZOLE SODIUM 40 MG/VIAL IV SCH ×2 (09:21→17:58)
[2021-08-15] MEDS: ASCORBIC ACID 500 MG TABLET PO SCH (09:21)
[2021-08-15] MEDS: MIDODRINE HCL 5MG TABLET PO SCH ×3 (09:22→17:58)
[2021-08-15] MEDS: INSULIN GLARGINE 100 UNITS/ML SUBCUT SCH ×2 (09:22→23:10)
[2021-08-15] MEDS: DOCUSATE SODIUM SUGAR FREE 100MG/10ML UDC NG SCH (10:40)
[2021-08-15] MEDS ORDERED: VANCOMYCIN 1GM PMX (XELLIA) 200 ML IV SCH (12:00)
[2021-08-15] MEDS: VANCOMYCIN 1GM PMX (XELLIA) 200 ML IV SCH (13:04)
[2021-08-15] MEDS: LACTULOSE 20G/30ML UDC PO SCH (21:09)
[2021-08-16] VITALS (56 sets, daily range): BP systolic 73–129; BP diastolic 46–75
[2021-08-16] MEDS: IPRATROPIUM/ALBUTEROL 0.5-3(2.5)MG/3ML NEB HHN SCH ×6 (00:22→20:15)
[2021-08-16] MEDS: DEXTROSE 5% WATER 1,000 ML IV SCH ×2 (03:40→16:33)
[2021-08-16] MEDS: GUAIFENESIN 200MG/10ML SUGAR FREE UDC PO SCH ×6 (04:28→20:55)
[2021-08-16] MEDS: MEROPENEM 1,000 MG in SODIUM CHLORIDE 0.9% 100 ML IV SCH ×3 (05:33→21:03)
[2021-08-16 05:34] LABS: HEMATOCRIT. 23.4 % (42.0-52.0); HEMOGLOBIN. 7.9 g/dL (14.0-18.0); MEAN CORPUSCULAR HEMOGLOBIN 30.4 pg (28.0-32.0); MEAN CORPUSCULAR VOLUME 89.5 fL (80.0-94.0); MEAN PLATELET VOLUME 9.2 fl (7.4-10.4); PLATELET 91 x1000/uL (130-400); RED BLOOD CELL COUNT 2.61 mill/uL (4.7-6.1); RED CELL DISTRIBUTION WIDTH 15.4 % (11.6-14.6)
[2021-08-16] MEDS: VANCOMYCIN 1GM PMX (XELLIA) 200 ML IV SCH (05:34)
[2021-08-16] MEDS: LACTULOSE 20G/30ML UDC PO SCH ×3 (05:36→21:03)
[2021-08-16 05:55] LABS: CHLORIDE 108 mEq/L (98-107)
[2021-08-16] MEDS: INSULIN LISPRO 100 UNITS/ML SUBCUT SCH ×4 (06:00→17:30)
[2021-08-16] MEDS: BLOOD SUGAR DIAGNOSTIC STRIP TEST SCH ×4 (06:00→17:30)
[2021-08-16] MEDS: DOCUSATE SODIUM SUGAR FREE 100MG/10ML UDC NG SCH (08:00)
[2021-08-16] MEDS: PANTOPRAZOLE SODIUM 40 MG/VIAL IV SCH ×2 (08:00→16:32)
[2021-08-16] MEDS: MIDODRINE HCL 5MG TABLET PO SCH ×3 (08:00→16:32)
[2021-08-16] MEDS: ZINC SULFATE 220 MG ( 50 ) CAPSULE PO SCH (08:00)
[2021-08-16] MEDS: ASCORBIC ACID 500 MG TABLET PO SCH (08:00)
[2021-08-16 08:19] LABS: PLATELET ESTIMATE DECREASED
[2021-08-16 08:30] LABS: BG BASE EXCESS -0.5 mmol/L (-2.0-2.0); BG CARBOXYHEMOGLOBIN 0.3 % (0.5-1.5); BG DEOXYHEMOGLOBIN 1.1 % (0.0-5.0); BG FRACTION INSPIRED OXYGEN 30; BG HCO3 ACT 22.6 mmol/L (22.0-26.0); BG METHEMOGLOBIN 0.8 % (0.0-1.5); BG OXYGEN SATURATION 98.9 % (92.0-98.5); BG OXYHEMOGLOBIN 97.8 % (94.0-97.0); BG PCO2 30.8 mmHg (35.0-45.0); BG PH 7.484 (7.350-7.450); BG PO2 141.1 mmHg (75.0-100.0); BG SAMPLE SITE LEFT RADIAL; BG TOTAL HEMOGLOBIN 8.1 g/dL (12.0-18.0); BG VENT MODE VENT - AC
[2021-08-16] MEDS: INSULIN GLARGINE 100 UNITS/ML SUBCUT SCH ×2 (11:02→21:03)
[2021-08-16] MEDS: PHENYLEPHRINE 100 MG in DEXT 5% WATER 240 ML IV PRN (12:10)
[2021-08-16 21:13] LABS: HEMATOCRIT 24.3 % (42.0-52.0); HEMOGLOBIN 8.2 g/dL (14.0-18.0)
[2021-08-17] VITALS (80 sets, daily range): BP systolic 64–164; BP diastolic 39–94
[2021-08-17] MEDS: IPRATROPIUM/ALBUTEROL 0.5-3(2.5)MG/3ML NEB HHN SCH ×6 (00:17→20:21)
[2021-08-17] MEDS: DEXTROSE 5% WATER 1,000 ML IV SCH ×2 (00:38→19:09)
[2021-08-17] MEDS: GUAIFENESIN 200MG/10ML SUGAR FREE UDC PO SCH ×6 (00:38→20:03)
[2021-08-17] MEDS: VANCOMYCIN 1GM PMX (XELLIA) 200 ML IV SCH ×2 (00:40→20:01)
[2021-08-17] MEDS: BLOOD SUGAR DIAGNOSTIC STRIP TEST SCH ×4 (05:53→18:00)
[2021-08-17] MEDS: LACTULOSE 20G/30ML UDC PO SCH ×3 (05:53→21:26)
[2021-08-17] MEDS: INSULIN LISPRO 100 UNITS/ML SUBCUT SCH ×4 (06:00→18:00)
[2021-08-17 06:22] LABS: CHLORIDE 102 mEq/L (98-107)
[2021-08-17 06:26] LABS: INR 1.1; PROTHROMBIN TIME 12.1 sec (9.6-11.0)
[2021-08-17] MEDS: MEROPENEM 1,000 MG in SODIUM CHLORIDE 0.9% 100 ML IV SCH ×3 (06:31→21:26)
[2021-08-17] MEDS: DEXTROSE 50% WATER 50ML SYRINGE IV PRN ×3 (06:52→23:15)
[2021-08-17] MEDS ORDERED: POTASSIUM CHLORIDE INJ 40 MEQ in DEXT 5% WATER 250 ML IV ONE (08:30)
[2021-08-17 08:46] LABS: HEMATOCRIT 24.6 % (42.0-52.0); HEMOGLOBIN 8.3 g/dL (14.0-18.0)
[2021-08-17 08:51] LABS: BG CARBOXYHEMOGLOBIN 0.3 % (0.5-1.5); BG DEOXYHEMOGLOBIN 4.7 % (0.0-5.0); BG FRACTION INSPIRED OXYGEN 30; BG HCO3 ACT 25.1 mmol/L (22.0-26.0); BG METHEMOGLOBIN 0.3 % (0.0-1.5); BG OXYGEN SATURATION 95.3 % (92.0-98.5); BG OXYHEMOGLOBIN 94.7 % (94.0-97.0); BG PCO2 33.2 mmHg (35.0-45.0); BG PH 7.497 (7.350-7.450); BG PO2 73.7 mmHg (75.0-100.0); BG SAMPLE SITE LEFT RADIAL; BG TOTAL HEMOGLOBIN 8.4 g/dL (12.0-18.0); BG VENT MODE VENT - AC
[2021-08-17] MEDS: DOCUSATE SODIUM SUGAR FREE 100MG/10ML UDC NG SCH (09:00)
[2021-08-17] MEDS: KCL 20MEQ/100ML X 2 FOR TOTAL KCL 40MEQ/200ML IV SCH ×2 (09:07→10:37)
[2021-08-17] MEDS: INSULIN GLARGINE 100 UNITS/ML SUBCUT SCH ×2 (10:00→21:27)
[2021-08-17] MEDS: PANTOPRAZOLE SODIUM 40 MG/VIAL IV SCH ×2 (10:13→19:13)
[2021-08-17] MEDS: ASCORBIC ACID 500 MG TABLET PO SCH (10:14)
[2021-08-17] MEDS: MIDODRINE HCL 5MG TABLET PO SCH ×3 (10:14→19:13)
[2021-08-17] MEDS: ZINC SULFATE 220 MG ( 50 ) CAPSULE PO SCH (10:14)
[2021-08-17] MEDS ORDERED: LIDOCAINE HCL/EPINEPHRINE 1%-EPI 1:100,000 20 ML VIAL ONE (12:21)
[2021-08-17] MEDS ORDERED: FENTANYL CITRATE/PF 50MCG/ML 2ML VIAL ONE (12:30)
[2021-08-17] MEDS ORDERED: ROCURONIUM BROMIDE 10MG/ML VIAL 5ML IV ONE (12:30)
[2021-08-17] MEDS ORDERED: MIDAZOLAM HCL 2 MG/2 ML VIAL ONE (12:31)
[2021-08-17] MEDS ORDERED: MORPHINE SULFATE 2 MG/ML CPJ (NOT FOR IM USE) IV PRN (13:15)
[2021-08-17] MEDS ORDERED: LORAZEPAM 2MG/ML CPJ IV PRN (13:15)
[2021-08-17 15:28] LABS: BG BASE EXCESS -1.3 mmol/L (-2.0-2.0); BG CARBOXYHEMOGLOBIN 0.3 % (0.5-1.5); BG DEOXYHEMOGLOBIN 0.5 % (0.0-5.0); BG HCO3 ACT 21.9 mmol/L (22.0-26.0); BG METHEMOGLOBIN 0.2 % (0.0-1.5); BG OXYGEN SATURATION 99.5 % (92.0-98.5); BG PCO2 31.3 mmHg (35.0-45.0); BG PH 7.463 (7.350-7.450); BG PO2 419.5 mmHg (75.0-100.0); BG SAMPLE SITE RIGHT BRACHIAL; BG TOTAL HEMOGLOBIN 10.4 g/dL (12.0-18.0); BG VENT MODE VENT - AC
[2021-08-17 16:27] LABS: HEMOGLOBIN 8.1 g/dL (14.0-18.0)
[2021-08-17 20:03] LABS: HEMATOCRIT 24.1 % (42.0-52.0); HEMOGLOBIN 8.1 g/dL (14.0-18.0)
[2021-08-17] MEDS: PHENYLEPHRINE 100 MG in DEXT 5% WATER 240 ML IV PRN (21:51)
[2021-08-18] VITALS (71 sets, daily range): BP systolic 80–134; BP diastolic 48–79
[2021-08-18] MEDS: IPRATROPIUM/ALBUTEROL 0.5-3(2.5)MG/3ML NEB HHN SCH ×6 (00:12→20:30)
[2021-08-18] MEDS: INSULIN LISPRO 100 UNITS/ML SUBCUT SCH ×4 (06:00→17:46)
[2021-08-18] MEDS: LACTULOSE 20G/30ML UDC PO SCH ×3 (06:00→21:22)
[2021-08-18] MEDS: BLOOD SUGAR DIAGNOSTIC STRIP TEST SCH ×4 (06:27→17:45)
[2021-08-18] MEDS: GUAIFENESIN 200MG/10ML SUGAR FREE UDC PO SCH ×5 (06:37→21:17)
[2021-08-18] MEDS: MEROPENEM 1,000 MG in SODIUM CHLORIDE 0.9% 100 ML IV SCH ×3 (06:37→21:22)
[2021-08-18 07:15] LABS: INR 1.2; PROTHROMBIN TIME 12.7 sec (9.6-11.0)
[2021-08-18 07:31] LABS: CHLORIDE 103 mEq/L (98-107); HEMATOCRIT 22.5 % (42.0-52.0); HEMOGLOBIN 7.7 g/dL (14.0-18.0)
[2021-08-18] MEDS: PANTOPRAZOLE SODIUM 40 MG/VIAL IV SCH ×2 (08:43→17:09)
[2021-08-18] MEDS: DEXTROSE 5% WATER 1,000 ML IV SCH ×2 (08:43→21:22)
[2021-08-18] MEDS: MIDODRINE HCL 5MG TABLET PO SCH ×3 (08:44→17:09)
[2021-08-18] MEDS: ASCORBIC ACID 500 MG TABLET PO SCH (08:44)
[2021-08-18] MEDS: ZINC SULFATE 220 MG ( 50 ) CAPSULE PO SCH (08:44)
[2021-08-18] MEDS: DOCUSATE SODIUM SUGAR FREE 100MG/10ML UDC NG SCH (08:44)
[2021-08-18] MEDS: INSULIN GLARGINE 100 UNITS/ML SUBCUT SCH (10:16)
[2021-08-18] MEDS: VANCOMYCIN 1GM PMX (XELLIA) 200 ML IV SCH (11:44)
[2021-08-18 14:51] LABS: HEMATOCRIT 21.2 % (42.0-52.0); HEMOGLOBIN 7.2 g/dL (14.0-18.0)
[2021-08-18] MEDS ORDERED: NALOXONE HCL 0.4MG/ML VIAL IV PRN (19:30)
[2021-08-18 20:59] LABS: HEMOGLOBIN 7.2 g/dL (14.0-18.0)
[2021-08-19] VITALS (16 sets, daily range): BP systolic 81–118; BP diastolic 46–71
[2021-08-19] MEDS: GUAIFENESIN 200MG/10ML SUGAR FREE UDC PO SCH ×6 (00:27→20:56)
[2021-08-19] MEDS: IPRATROPIUM/ALBUTEROL 0.5-3(2.5)MG/3ML NEB HHN SCH ×6 (00:45→20:59)
[2021-08-19 02:06] LABS: HEMOGLOBIN 7.1 g/dL (14.0-18.0)
[2021-08-19 02:23] LABS: HEMATOCRIT 20.9 % (42.0-52.0)
[2021-08-19] MEDS: LACTULOSE 20G/30ML UDC PO SCH ×3 (05:26→22:38)
[2021-08-19] MEDS: BLOOD SUGAR DIAGNOSTIC STRIP TEST SCH ×4 (05:26→17:02)
[2021-08-19] MEDS: DEXTROSE 5% WATER 1,000 ML IV SCH (05:27)
[2021-08-19] MEDS: INSULIN LISPRO 100 UNITS/ML SUBCUT SCH ×4 (05:28→17:02)
[2021-08-19] MEDS: VANCOMYCIN 1GM PMX (XELLIA) 200 ML IV SCH (05:59)
[2021-08-19 07:26] LABS: INR 1.2; PROTHROMBIN TIME 12.4 sec (9.6-11.0)
[2021-08-19 07:43] LABS: CHLORIDE 97 mEq/L (98-107)
[2021-08-19 08:30] LABS: HEMATOCRIT 20.8 % (42.0-52.0); HEMOGLOBIN 7.1 g/dL (14.0-18.0)
[2021-08-19] MEDS: DOCUSATE SODIUM SUGAR FREE 100MG/10ML UDC NG SCH (08:42)
[2021-08-19] MEDS: PANTOPRAZOLE SODIUM 40 MG/VIAL IV SCH ×2 (08:42→17:07)
[2021-08-19] MEDS: ZINC SULFATE 220 MG ( 50 ) CAPSULE PO SCH (08:42)
[2021-08-19] MEDS: ASCORBIC ACID 500 MG TABLET PO SCH (08:42)
[2021-08-19] MEDS: MIDODRINE HCL 5MG TABLET PO SCH ×3 (08:43→17:07)
[2021-08-19 09:37] LABS: BG BASE EXCESS 3.5 mmol/L (-2.0-2.0); BG CARBOXYHEMOGLOBIN 0.6 % (0.5-1.5); BG DEOXYHEMOGLOBIN 0.7 % (0.0-5.0); BG FRACTION INSPIRED OXYGEN 40; BG HCO3 ACT 25.8 mmol/L (22.0-26.0); BG METHEMOGLOBIN 0.3 % (0.0-1.5); BG OXYGEN SATURATION 99.3 % (92.0-98.5); BG OXYHEMOGLOBIN 98.4 % (94.0-97.0); BG PCO2 29.5 mmHg (35.0-45.0); BG PH 7.559 (7.350-7.450); BG SAMPLE SITE RIGHT RADIAL; BG TOTAL HEMOGLOBIN 7.6 g/dL (12.0-18.0); BG VENT MODE VENT - AC
[2021-08-19 12:29] LABS: HEMOGLOBIN 7.5 g/dL (14.0-18.0)
[2021-08-19 18:56] LABS: BASOPHILS % 0.4 % (0.0-2.0); EOSINOPHILS % 0.1 % (0.0-5.0); HEMATOCRIT. 26.2 % (42.0-52.0); HEMOGLOBIN. 9.2 g/dL (14.0-18.0); LYMPHOCYTES % 7.9 % (20.0-50.0); MEAN CORPUSCULAR VOLUME 88.2 fL (80.0-94.0); MONOCYTES % 7.3 % (2.0-8.0); NEUTROPHILS % 84.3 % (40.0-76.0); PLATELET 124 x1000/uL (130-400); RED BLOOD CELL COUNT 2.97 mill/uL (4.7-6.1); RED CELL DISTRIBUTION WIDTH 15.2 % (11.6-14.6)
[2021-08-19 19:03] LABS: INR 1.1
[2021-08-20] VITALS (12 sets, daily range): BP systolic 88–127; BP diastolic 47–82
[2021-08-20] MEDS: BLOOD SUGAR DIAGNOSTIC STRIP TEST SCH ×5 (00:02→23:04)
[2021-08-20] MEDS: GUAIFENESIN 200MG/10ML SUGAR FREE UDC PO SCH ×7 (00:05→23:51)
[2021-08-20] MEDS: INSULIN LISPRO 100 UNITS/ML SUBCUT SCH ×5 (00:06→23:04)
[2021-08-20] MEDS: IPRATROPIUM/ALBUTEROL 0.5-3(2.5)MG/3ML NEB HHN SCH ×6 (01:42→20:36)
[2021-08-20 06:05] LABS: HEMATOCRIT. 24.5 % (42.0-52.0); HEMOGLOBIN. 8.6 g/dL (14.0-18.0); MEAN CORPUSCULAR HEMOGLOBIN 30.4 pg (28.0-32.0); MEAN CORPUSCULAR VOLUME 86.4 fL (80.0-94.0); MEAN PLATELET VOLUME 7.9 fl (7.4-10.4); PLATELET 128 x1000/uL (130-400); RED BLOOD CELL COUNT 2.84 mill/uL (4.7-6.1); RED CELL DISTRIBUTION WIDTH 15.1 % (11.6-14.6)
[2021-08-20 06:08] LABS: INR 1.2; PROTHROMBIN TIME 12.4 sec (9.6-11.0)
[2021-08-20 06:20] LABS: CHLORIDE 99 mEq/L (98-107)
[2021-08-20] MEDS: LACTULOSE 20G/30ML UDC PO SCH ×3 (06:42→21:31)
[2021-08-20] MEDS: PANTOPRAZOLE SODIUM 40 MG/VIAL IV SCH ×2 (09:23→17:38)
[2021-08-20] MEDS: ZINC SULFATE 220 MG ( 50 ) CAPSULE PO SCH (09:24)
[2021-08-20] MEDS: MIDODRINE HCL 5MG TABLET PO SCH ×3 (09:24→17:41)
[2021-08-20] MEDS: DOCUSATE SODIUM SUGAR FREE 100MG/10ML UDC NG SCH (09:24)
[2021-08-20] MEDS: ASCORBIC ACID 500 MG TABLET PO SCH (09:24)
[2021-08-20 14:24] LABS: PLATELET ESTIMATE SLIGHTLY DECREASED
[2021-08-20] MEDS: ACETAMINOPHEN 325MG TABLET PO PRN (22:22)
[2021-08-21] VITALS (11 sets, daily range): BP systolic 78–122; BP diastolic 46–80
[2021-08-21] MEDS: IPRATROPIUM/ALBUTEROL 0.5-3(2.5)MG/3ML NEB HHN SCH ×7 (00:27→23:36)
[2021-08-21] MEDS: GUAIFENESIN 200MG/10ML SUGAR FREE UDC PO SCH ×5 (03:33→20:14)
[2021-08-21] MEDS: BLOOD SUGAR DIAGNOSTIC STRIP TEST SCH ×4 (05:19→23:16)
[2021-08-21] MEDS: LACTULOSE 20G/30ML UDC PO SCH (05:25)
[2021-08-21] MEDS: INSULIN LISPRO 100 UNITS/ML SUBCUT SCH ×4 (05:25→23:16)
[2021-08-21 07:45] LABS: HEMATOCRIT. 23.5 % (42.0-52.0); HEMOGLOBIN. 8.4 g/dL (14.0-18.0); MEAN CORPUSCULAR HEMOGLOBIN 31.1 pg (28.0-32.0); MEAN CORPUSCULAR VOLUME 87.5 fL (80.0-94.0); MEAN PLATELET VOLUME 7.7 fl (7.4-10.4); PLATELET 125 x1000/uL (130-400); RED BLOOD CELL COUNT 2.69 mill/uL (4.7-6.1); RED CELL DISTRIBUTION WIDTH 15.7 % (11.6-14.6)
[2021-08-21 07:57] LABS: INR 1.2; PROTHROMBIN TIME 13.2 sec (9.6-11.0)
[2021-08-21 08:02] LABS: CHLORIDE 100 mEq/L (98-107)
[2021-08-21] MEDS: ASCORBIC ACID 500 MG TABLET PO SCH (09:16)
[2021-08-21] MEDS: PANTOPRAZOLE SODIUM 40 MG/VIAL IV SCH ×2 (09:16→17:31)
[2021-08-21] MEDS: DOCUSATE SODIUM SUGAR FREE 100MG/10ML UDC NG SCH (09:16)
[2021-08-21] MEDS: ZINC SULFATE 220 MG ( 50 ) CAPSULE PO SCH (09:16)
[2021-08-21] MEDS: MIDODRINE HCL 5MG TABLET PO SCH ×3 (09:16→17:31)
[2021-08-21] MEDS: KCL 20MEQ/100ML PREMIX 100 ML IV SCH ×2 (10:26→12:41)
[2021-08-21 13:50] LABS: PLATELET ESTIMATE SLIGHTLY DECREASED
[2021-08-22] VITALS (12 sets, daily range): BP systolic 78–112; BP diastolic 48–65
[2021-08-22] MEDS: GUAIFENESIN 200MG/10ML SUGAR FREE UDC PO SCH ×7 (00:24→23:14)
[2021-08-22] MEDS: IPRATROPIUM/ALBUTEROL 0.5-3(2.5)MG/3ML NEB HHN SCH ×2 (03:58→07:28)
[2021-08-22] MEDS: INSULIN LISPRO 100 UNITS/ML SUBCUT SCH ×4 (06:00→23:14)
[2021-08-22] MEDS: BLOOD SUGAR DIAGNOSTIC STRIP TEST SCH ×4 (06:32→23:14)
[2021-08-22 06:38] LABS: HEMATOCRIT. 25.6 % (42.0-52.0); MEAN CORPUSCULAR HEMOGLOBIN 30.6 pg (28.0-32.0); MEAN CORPUSCULAR VOLUME 87.1 fL (80.0-94.0); MEAN PLATELET VOLUME 8.2 fl (7.4-10.4); PLATELET 135 x1000/uL (130-400); RED BLOOD CELL COUNT 2.94 mill/uL (4.7-6.1); RED CELL DISTRIBUTION WIDTH 15.2 % (11.6-14.6)
[2021-08-22 06:46] LABS: CHLORIDE 99 mEq/L (98-107)
[2021-08-22] MEDS ORDERED: ACETAMINOPHEN 650MG/20.3ML UDC PO PRN (07:45)
[2021-08-22] MEDS: DOCUSATE SODIUM SUGAR FREE 100MG/10ML UDC NG SCH (09:00)
[2021-08-22] MEDS: ASCORBIC ACID 500 MG TABLET PO SCH (09:12)
[2021-08-22] MEDS: ZINC SULFATE 220 MG ( 50 ) CAPSULE PO SCH (09:12)
[2021-08-22] MEDS: PANTOPRAZOLE SODIUM 40 MG/VIAL IV SCH ×2 (09:12→18:03)
[2021-08-22] MEDS: MIDODRINE HCL 5MG TABLET PO SCH ×3 (09:12→18:03)
[2021-08-22 15:56] LABS: PLATELET ESTIMATE NORMAL
[2021-08-23] VITALS (13 sets, daily range): BP systolic 70–112; BP diastolic 48–69
[2021-08-23] MEDS: GUAIFENESIN 200MG/10ML SUGAR FREE UDC PO SCH ×6 (04:00→23:58)
[2021-08-23] MEDS: INSULIN LISPRO 100 UNITS/ML SUBCUT SCH ×4 (05:55→23:57)
[2021-08-23] MEDS: BLOOD SUGAR DIAGNOSTIC STRIP TEST SCH ×4 (05:55→23:57)
[2021-08-23 06:19] LABS: INR 1.2; PROTHROMBIN TIME 12.7 sec (9.6-11.0)
[2021-08-23 06:23] LABS: HEMATOCRIT. 23.3 % (42.0-52.0); HEMOGLOBIN. 8.2 g/dL (14.0-18.0); MEAN CORPUSCULAR HEMOGLOBIN 30.8 pg (28.0-32.0); MEAN PLATELET VOLUME 8.1 fl (7.4-10.4); PLATELET 139 x1000/uL (130-400); RED BLOOD CELL COUNT 2.68 mill/uL (4.7-6.1); RED CELL DISTRIBUTION WIDTH 15.5 % (11.6-14.6)
[2021-08-23 07:36] LABS: CHLORIDE 98 mEq/L (98-107)
[2021-08-23] MEDS: DOCUSATE SODIUM SUGAR FREE 100MG/10ML UDC NG SCH (08:41)
[2021-08-23] MEDS: MIDODRINE HCL 5MG TABLET PO SCH ×3 (08:42→17:40)
[2021-08-23] MEDS: PANTOPRAZOLE SODIUM 40 MG/VIAL IV SCH ×2 (08:42→17:40)
[2021-08-23] MEDS: ASCORBIC ACID 500 MG TABLET PO SCH (08:43)
[2021-08-23] MEDS: ZINC SULFATE 220 MG ( 50 ) CAPSULE PO SCH (08:43)
[2021-08-23] MEDS ORDERED: CEFAZOLIN 1000MG PREMIX 50 ML IV PRN (12:00)
[2021-08-23] MEDS ORDERED: SODIUM CHLORIDE 0.9% 500 ML IV ONE (14:15)
[2021-08-23 16:11] LABS: BG BASE EXCESS -1.4 mmol/L (-2.0-2.0); BG CARBOXYHEMOGLOBIN 0.1 % (0.5-1.5); BG DEOXYHEMOGLOBIN 2.8 % (0.0-5.0); BG FRACTION INSPIRED OXYGEN 30; BG HCO3 ACT 20.4 mmol/L (22.0-26.0); BG METHEMOGLOBIN 0.2 % (0.0-1.5); BG OXYGEN SATURATION 97.2 % (92.0-98.5); BG OXYHEMOGLOBIN 96.9 % (94.0-97.0); BG PCO2 24.2 mmHg (35.0-45.0); BG PH 7.543 (7.350-7.450); BG PO2 93.5 mmHg (75.0-100.0); BG SAMPLE SITE RIGHT RADIAL; BG TOTAL HEMOGLOBIN 8.5 g/dL (12.0-18.0); BG VENT MODE VENT - AC
[2021-08-23 18:01] LABS: HEMATOCRIT 24.8 % (42.0-52.0); HEMOGLOBIN 8.7 g/dL (14.0-18.0)
[2021-08-23 18:30] LABS: PLATELET ESTIMATE NORMAL
[2021-08-24] VITALS (17 sets, daily range): BP systolic 90–144; BP diastolic 47–74
[2021-08-24 00:12] LABS: HEMATOCRIT 19.8 % (42.0-52.0); HEMOGLOBIN 6.8 g/dL (14.0-18.0)
[2021-08-24] MEDS: GUAIFENESIN 200MG/10ML SUGAR FREE UDC PO SCH ×5 (03:33→20:47)
[2021-08-24] MEDS: BLOOD SUGAR DIAGNOSTIC STRIP TEST SCH ×3 (05:55→18:32)
[2021-08-24] MEDS: INSULIN LISPRO 100 UNITS/ML SUBCUT SCH ×3 (05:55→18:00)
[2021-08-24] MEDS: DOCUSATE SODIUM SUGAR FREE 100MG/10ML UDC NG SCH (08:24)
[2021-08-24] MEDS: ASCORBIC ACID 500 MG TABLET PO SCH (08:25)
[2021-08-24] MEDS: ZINC SULFATE 220 MG ( 50 ) CAPSULE PO SCH (08:25)
[2021-08-24] MEDS ORDERED: CEFAZOLIN 1000MG PREMIX 50 ML IV NR (09:00)
[2021-08-24] MEDS: PANTOPRAZOLE SODIUM 40 MG/VIAL IV SCH ×2 (09:28→18:32)
[2021-08-24] MEDS: MIDODRINE HCL 5MG TABLET PO SCH ×3 (09:28→18:32)
[2021-08-24 09:46] LABS: HEMATOCRIT. 29.1 % (42.0-52.0); MEAN CORPUSCULAR HEMOGLOBIN 30.3 pg (28.0-32.0); MEAN CORPUSCULAR VOLUME 88.5 fL (80.0-94.0); RED BLOOD CELL COUNT 3.29 mill/uL (4.7-6.1)
[2021-08-24 09:47] LABS: MEAN PLATELET VOLUME 7.4 fl (7.4-10.4); PLATELET 173 x1000/uL (130-400); RED CELL DISTRIBUTION WIDTH 15.3 % (11.6-14.6)
[2021-08-24 09:55] LABS: CHLORIDE 98 mEq/L (98-107)
[2021-08-24 09:57] LABS: INR 1.2; PROTHROMBIN TIME 12.9 sec (9.6-11.0)
[2021-08-24 10:08] LABS: PLATELET ESTIMATE NORMAL
[2021-08-24] MEDS: SODIUM CHLORIDE 0.9% 500 ML IV NR ×2 (11:00→11:30)
[2021-08-24] MEDS: DEXT 5%/0.9% NACL 1,000 ML IV SCH ×2 (12:52→20:47)
[2021-08-25] VITALS (12 sets, daily range): BP systolic 101–150; BP diastolic 48–75
[2021-08-25] MEDS: GUAIFENESIN 200MG/10ML SUGAR FREE UDC PO SCH ×6 (00:29→22:26)
[2021-08-25] MEDS: BLOOD SUGAR DIAGNOSTIC STRIP TEST SCH ×4 (00:30→17:05)
[2021-08-25] MEDS: INSULIN LISPRO 100 UNITS/ML SUBCUT SCH ×4 (00:30→18:46)
[2021-08-25] MEDS: DEXT 5%/0.9% NACL 1,000 ML IV SCH ×2 (06:24→16:41)
[2021-08-25 07:07] LABS: HEMATOCRIT. 25.5 % (42.0-52.0); HEMOGLOBIN. 8.9 g/dL (14.0-18.0); MEAN CORPUSCULAR VOLUME 88.9 fL (80.0-94.0); MEAN PLATELET VOLUME 8.1 fl (7.4-10.4); RED BLOOD CELL COUNT 2.87 mill/uL (4.7-6.1); RED CELL DISTRIBUTION WIDTH 15.4 % (11.6-14.6)
[2021-08-25 07:10] LABS: INR 1.3
[2021-08-25] MEDS: DOCUSATE SODIUM SUGAR FREE 100MG/10ML UDC NG SCH (09:34)
[2021-08-25] MEDS: MIDODRINE HCL 5MG TABLET PO SCH ×3 (09:34→16:41)
[2021-08-25] MEDS: PANTOPRAZOLE SODIUM 40 MG/VIAL IV SCH ×2 (09:35→16:40)
[2021-08-25] MEDS ORDERED: CEFAZOLIN 1000MG PREMIX 50 ML IV NR (10:00)
[2021-08-25 10:27] LABS: CHLORIDE 107 mEq/L (98-107)
[2021-08-25] MEDS ORDERED: POTASSIUM CHLORIDE 20MEQ TABLET SR PO NR (12:00)
[2021-08-25 13:32] LABS: PLATELET ESTIMATE NORMAL
[2021-08-25 13:41] LABS: PLATELET 158 x1000/uL (130-400)
[2021-08-25] MEDS ORDERED: CEFAZOLIN SODIUM 1000MG/VIAL ONE (15:47)
[2021-08-25] MEDS ORDERED: PROPOFOL 200MG/20ML VIAL IV ONE (15:47)
[2021-08-25] MEDS ORDERED: DEXAMETHASONE 4MG/ML 1ML VIAL ONE (15:47)
[2021-08-25] MEDS ORDERED: LIDOCAINE HCL 1% 10 MG/ML 10ML VIAL ONE (15:48)
[2021-08-25] MEDS ORDERED: ONDANSETRON HCL 4MG/2ML INJ ONE (15:48)
[2021-08-25] MEDS ORDERED: FENTANYL CITRATE/PF 50MCG/ML 2ML VIAL ONE (15:48)
[2021-08-25] MEDS ORDERED: PANTOPRAZOLE 40MG DR TABLET PO ONE (16:21)
[2021-08-25] MEDS ORDERED: INSULIN LISPRO 100 UNITS/ML SUBCUT ONE (18:41)
[2021-08-26] VITALS (12 sets, daily range): BP systolic 80–124; BP diastolic 37–74
[2021-08-26] MEDS: BLOOD SUGAR DIAGNOSTIC STRIP TEST SCH ×5 (00:03→23:53)
[2021-08-26] MEDS: GUAIFENESIN 200MG/10ML SUGAR FREE UDC PO SCH ×7 (00:46→23:59)
[2021-08-26] MEDS: INSULIN LISPRO 100 UNITS/ML SUBCUT SCH ×4 (00:50→18:10)
[2021-08-26] MEDS: DEXT 5%/0.9% NACL 1,000 ML IV SCH ×3 (02:27→22:23)
[2021-08-26 07:12] LABS: HEMATOCRIT. 27.5 % (42.0-52.0); HEMOGLOBIN. 9.4 g/dL (14.0-18.0); MEAN CORPUSCULAR HEMOGLOBIN 30.6 pg (28.0-32.0); MEAN CORPUSCULAR VOLUME 89.3 fL (80.0-94.0); MEAN PLATELET VOLUME 8.7 fl (7.4-10.4); PLATELET 179 x1000/uL (130-400); RED BLOOD CELL COUNT 3.08 mill/uL (4.7-6.1); RED CELL DISTRIBUTION WIDTH 15.7 % (11.6-14.6)
[2021-08-26 07:36] LABS: CHLORIDE 112 mEq/L (98-107)
[2021-08-26] MEDS: PANTOPRAZOLE SODIUM 40 MG/VIAL IV SCH ×2 (08:23→18:08)
[2021-08-26] MEDS: DOCUSATE SODIUM SUGAR FREE 100MG/10ML UDC NG SCH (08:23)
[2021-08-26] MEDS: MIDODRINE HCL 5MG TABLET PO SCH ×3 (08:23→17:00)
[2021-08-26 12:38] LABS: PLATELET ESTIMATE NORMAL
[2021-08-27] VITALS (12 sets, daily range): BP systolic 96–144; BP diastolic 52–75
[2021-08-27] MEDS: GUAIFENESIN 200MG/10ML SUGAR FREE UDC PO SCH ×5 (03:43→20:23)
[2021-08-27] MEDS: BLOOD SUGAR DIAGNOSTIC STRIP TEST SCH ×3 (05:59→17:33)
[2021-08-27] MEDS: INSULIN LISPRO 100 UNITS/ML SUBCUT SCH ×4 (06:06→17:50)
[2021-08-27 07:14] LABS: HEMATOCRIT. 27.9 % (42.0-52.0); HEMOGLOBIN. 9.5 g/dL (14.0-18.0); MEAN CORPUSCULAR HEMOGLOBIN 30.5 pg (28.0-32.0); MEAN CORPUSCULAR VOLUME 89.8 fL (80.0-94.0); MEAN PLATELET VOLUME 8.3 fl (7.4-10.4); RED BLOOD CELL COUNT 3.11 mill/uL (4.7-6.1); RED CELL DISTRIBUTION WIDTH 15.9 % (11.6-14.6)
[2021-08-27 07:16] LABS: CHLORIDE 113 mEq/L (98-107)
[2021-08-27] MEDS: DEXT 5%/0.9% NACL 1,000 ML IV SCH ×2 (08:56→17:44)
[2021-08-27] MEDS: PANTOPRAZOLE SODIUM 40 MG/VIAL IV SCH ×2 (08:56→17:54)
[2021-08-27] MEDS: DOCUSATE SODIUM SUGAR FREE 100MG/10ML UDC NG SCH (08:57)
[2021-08-27] MEDS: MIDODRINE HCL 5MG TABLET PO SCH ×3 (08:57→17:00)
[2021-08-27 11:17] LABS: PLATELET ESTIMATE NORMAL
[2021-08-27 11:19] LABS: PLATELET 232 x1000/uL (130-400)
[2021-08-27] MEDS ORDERED: POTASSIUM CHLORIDE 20MEQ TABLET SR PO NR (19:45)
[2021-08-28] VITALS (12 sets, daily range): BP systolic 123–141; BP diastolic 53–77
[2021-08-28] MEDS: GUAIFENESIN 200MG/10ML SUGAR FREE UDC PO SCH ×6 (00:30→21:36)
[2021-08-28] MEDS: BLOOD SUGAR DIAGNOSTIC STRIP TEST SCH ×4 (00:30→17:10)
[2021-08-28] MEDS: INSULIN LISPRO 100 UNITS/ML SUBCUT SCH ×4 (00:31→17:18)
[2021-08-28] MEDS ORDERED: POTASSIUM CHLORIDE 20MEQ TABLET SR PO NR (01:00)
[2021-08-28] MEDS: DEXT 5%/0.9% NACL 1,000 ML IV SCH ×2 (04:59→14:10)
[2021-08-28] MEDS: DOCUSATE SODIUM SUGAR FREE 100MG/10ML UDC NG SCH (08:06)
[2021-08-28] MEDS: PANTOPRAZOLE SODIUM 40 MG/VIAL IV SCH ×2 (08:07→17:16)
[2021-08-28] MEDS: MIDODRINE HCL 5MG TABLET PO SCH ×3 (08:07→17:00)
[2021-08-28] MEDS ORDERED: POTASSIUM CHLORIDE 20MEQ/PACKET PO SCH (09:00)
[2021-08-29] VITALS (12 sets, daily range): BP systolic 123–148; BP diastolic 54–73
[2021-08-29] MEDS: DEXT 5%/0.9% NACL 1,000 ML IV SCH ×3 (00:45→22:24)
[2021-08-29] MEDS: GUAIFENESIN 200MG/10ML SUGAR FREE UDC PO SCH ×6 (03:45→20:13)
[2021-08-29] MEDS: BLOOD SUGAR DIAGNOSTIC STRIP TEST SCH ×5 (05:45→23:51)
[2021-08-29] MEDS: INSULIN LISPRO 100 UNITS/ML SUBCUT SCH ×4 (06:00→17:51)
[2021-08-29 06:07] LABS: HEMOGLOBIN. 8.6 g/dL (14.0-18.0); MEAN CORPUSCULAR HEMOGLOBIN 31.2 pg (28.0-32.0); MEAN CORPUSCULAR VOLUME 90.3 fL (80.0-94.0); MEAN PLATELET VOLUME 8.5 fl (7.4-10.4); PLATELET 276 x1000/uL (130-400); RED BLOOD CELL COUNT 2.77 mill/uL (4.7-6.1); RED CELL DISTRIBUTION WIDTH 15.7 % (11.6-14.6)
[2021-08-29 06:22] LABS: CHLORIDE 108 mEq/L (98-107)
[2021-08-29 07:26] LABS: BG BASE EXCESS 3.3 mmol/L (-2.0-2.0); BG CARBOXYHEMOGLOBIN 0.3 % (0.5-1.5); BG DEOXYHEMOGLOBIN 2.7 % (0.0-5.0); BG HCO3 ACT 27.7 mmol/L (22.0-26.0); BG METHEMOGLOBIN 0.3 % (0.0-1.5); BG OXYGEN SATURATION 97.3 % (92.0-98.5); BG OXYHEMOGLOBIN 96.7 % (94.0-97.0); BG PCO2 41.3 mmHg (35.0-45.0); BG PH 7.444 (7.350-7.450); BG PO2 95.7 mmHg (75.0-100.0); BG SAMPLE SITE RIGHT RADIAL; BG VENT MODE VENT - CPAP
[2021-08-29] MEDS: MIDODRINE HCL 5MG TABLET PO SCH ×3 (09:00→17:00)
[2021-08-29] MEDS: DOCUSATE SODIUM SUGAR FREE 100MG/10ML UDC NG SCH (09:01)
[2021-08-29] MEDS: PANTOPRAZOLE SODIUM 40 MG/VIAL IV SCH ×2 (09:01→17:51)
[2021-08-29 14:47] LABS: PLATELET ESTIMATE NORMAL
[2021-08-30] VITALS (13 sets, daily range): BP systolic 117–157; BP diastolic 53–76
[2021-08-30] MEDS: GUAIFENESIN 200MG/10ML SUGAR FREE UDC PO SCH ×5 (00:04→17:13)
[2021-08-30] MEDS: BLOOD SUGAR DIAGNOSTIC STRIP TEST SCH ×3 (05:49→17:50)
[2021-08-30] MEDS: INSULIN LISPRO 100 UNITS/ML SUBCUT SCH ×4 (05:50→18:01)
[2021-08-30] MEDS: DEXT 5%/0.9% NACL 1,000 ML IV SCH ×2 (06:57→17:17)
[2021-08-30] MEDS: DOCUSATE SODIUM SUGAR FREE 100MG/10ML UDC NG SCH (08:16)
[2021-08-30] MEDS: PANTOPRAZOLE SODIUM 40 MG/VIAL IV SCH ×2 (08:17→17:14)
[2021-08-30] MEDS: MIDODRINE HCL 5MG TABLET PO SCH ×4 (08:17→17:00)
[2021-08-30 15:25] LABS: BASOPHILS % 0.7 % (0.0-2.0); EOSINOPHILS % 1.3 % (0.0-5.0); HEMATOCRIT. 30.7 % (42.0-52.0); HEMOGLOBIN. 10.5 g/dL (14.0-18.0); LYMPHOCYTES % 13.2 % (20.0-50.0); MEAN CORPUSCULAR HEMOGLOBIN 30.8 pg (28.0-32.0); MEAN CORPUSCULAR VOLUME 90.4 fL (80.0-94.0); MEAN PLATELET VOLUME 7.5 fl (7.4-10.4); MONOCYTES % 9.5 % (2.0-8.0); NEUTROPHILS % 75.3 % (40.0-76.0); PLATELET 336 x1000/uL (130-400); RED CELL DISTRIBUTION WIDTH 15.9 % (11.6-14.6)
[2021-08-30 15:29] LABS: CHLORIDE 105 mEq/L (98-107)
[2021-08-30] MEDS: SODIUM HYPOCHLORITE (0.25%) 480ML SOLUTION (HALF STRENGTH) TOP SCH ×2 (18:00→22:30)
[2021-08-30] MEDS ORDERED: IPRATROPIUM/ALBUTEROL 0.5-3(2.5)MG/3ML NEB HHN PRN (23:45)
[2021-08-31] VITALS (9 sets, daily range): BP systolic 121–147; BP diastolic 53–74
[2021-08-31] MEDS: LORAZEPAM 2MG/ML CPJ IV PRN ×3 (00:11→16:30)
[2021-08-31] MEDS: INSULIN LISPRO 100 UNITS/ML SUBCUT SCH ×3 (00:13→12:26)
[2021-08-31] MEDS: DEXT 5%/0.9% NACL 1,000 ML IV SCH ×2 (05:26→12:25)
[2021-08-31] MEDS: BLOOD SUGAR DIAGNOSTIC STRIP TEST SCH ×3 (05:30→12:06)
[2021-08-31] MEDS: DOCUSATE SODIUM SUGAR FREE 100MG/10ML UDC NG SCH (09:41)
[2021-08-31] MEDS: PANTOPRAZOLE SODIUM 40 MG/VIAL IV SCH (09:42)
[2021-08-31] MEDS: MIDODRINE HCL 5MG TABLET PO SCH ×2 (09:43→12:21)
== END 2021-08-31 16:56 | DRG 4 ==
LOC: ER 22:25 → MICUSO 07-24 02:02 → 5WST 07-24 09:59 → MICUNO 07-25 09:17 → 5EST 07-29 23:45 → CVICU 08-02 16:34 → 5EST 08-18 17:51
PROVIDERS: ADMIT Internal Medicine; ATTEND Internal Medicine
PROC: 5A09357 Assistance with Respiratory Ventilation, Less than 24 Consecutive Hours, Continuous Positive Airway Pressure (ICD-10-PCS; 2021-07-25)
PROC: 0LBW0ZZ Excision of Left Foot Tendon, Open Approach (ICD-10-PCS; principal; 2021-07-26)
PROC: 02HV33Z Insertion of Infusion Device into Superior Vena Cava, Percutaneous Approach (ICD-10-PCS; 2021-07-26)
PROC: B548ZZA Ultrasonography of Superior Vena Cava, Guidance (ICD-10-PCS; 2021-07-26)
PROC: 0JBQ0ZZ Excision of Right Foot Subcutaneous Tissue and Fascia, Open Approach (ICD-10-PCS; 2021-07-26)
PROC: 5A09357 Assistance with Respiratory Ventilation, Less than 24 Consecutive Hours, Continuous Positive Airway Pressure (ICD-10-PCS; 2021-07-27)
PROC: 30233N1 Transfusion of Nonautologous Red Blood Cells into Peripheral Vein, Percutaneous Approach (ICD-10-PCS; 2021-07-28)
PROC: 5A09357 Assistance with Respiratory Ventilation, Less than 24 Consecutive Hours, Continuous Positive Airway Pressure (ICD-10-PCS; 2021-07-29)
PROC: 5A09357 Assistance with Respiratory Ventilation, Less than 24 Consecutive Hours, Continuous Positive Airway Pressure (ICD-10-PCS; 2021-07-30)
PROC: 5A09357 Assistance with Respiratory Ventilation, Less than 24 Consecutive Hours, Continuous Positive Airway Pressure (ICD-10-PCS; 2021-07-31)
PROC: 0JBR0ZZ Excision of Left Foot Subcutaneous Tissue and Fascia, Open Approach (ICD-10-PCS; 2021-07-31)
PROC: 5A09457 Assistance with Respiratory Ventilation, 24-96 Consecutive Hours, Continuous Positive Airway Pressure (ICD-10-PCS; 2021-08-01)
PROC: 5A1945Z Respiratory Ventilation, 24-96 Consecutive Hours (ICD-10-PCS; 2021-08-02)
PROC: 0BH17EZ Insertion of Endotracheal Airway into Trachea, Via Natural or Artificial Opening (ICD-10-PCS; 2021-08-02)
PROC: 5A1955Z Respiratory Ventilation, Greater than 96 Consecutive Hours (ICD-10-PCS; 2021-08-08)
PROC: 0BH17EZ Insertion of Endotracheal Airway into Trachea, Via Natural or Artificial Opening (ICD-10-PCS; 2021-08-08)
PROC: 5A12012 Performance of Cardiac Output, Single, Manual (ICD-10-PCS; 2021-08-08)
PROC: 4A10X4Z Monitoring of Central Nervous Electrical Activity, External Approach (ICD-10-PCS; 2021-08-09)
PROC: 0B110F4 Bypass Trachea to Cutaneous with Tracheostomy Device, Open Approach (ICD-10-PCS; 2021-08-17)
PROC: 0LBW0ZZ Excision of Left Foot Tendon, Open Approach (ICD-10-PCS; 2021-08-21)
PROC: 0DH63UZ Insertion of Feeding Device into Stomach, Percutaneous Approach (ICD-10-PCS; 2021-08-25)
PROC: 0LBW0ZZ Excision of Left Foot Tendon, Open Approach (ICD-10-PCS; 2021-08-30)
PROC: 0JBQ0ZZ Excision of Right Foot Subcutaneous Tissue and Fascia, Open Approach (ICD-10-PCS; 2021-08-30)
DX: A40.1 Sepsis due to streptococcus, group B (principal); K72.00 Acute and subacute hepatic failure without coma; R65.21 Severe sepsis with septic shock; N17.0 Acute kidney failure with tubular necrosis; E43 Unspecified severe protein-calorie malnutrition; D69.6 Thrombocytopenia, unspecified; L89.150 Pressure ulcer of sacral region, unstageable; E87.1 Hypo-osmolality and hyponatremia; E87.4 Mixed disorder of acid-base balance; G93.1 Anoxic brain damage, not elsewhere classified; I46.9 Cardiac arrest, cause unspecified; Z66 Do not resuscitate; J18.9 Pneumonia, unspecified organism; E11.621 Type 2 diabetes mellitus with foot ulcer; L97.519 Non-pressure chronic ulcer of other part of right foot with unspecified severity; J96.01 Acute respiratory failure with hypoxia; D64.9 Anemia, unspecified; E11.65 Type 2 diabetes mellitus with hyperglycemia; I10 Essential (primary) hypertension; D75.839 Thrombocytosis, unspecified; L97.529 Non-pressure chronic ulcer of other part of left foot with unspecified severity; E87.5 Hyperkalemia; E88.09 Other disorders of plasma-protein metabolism, not elsewhere classified; F03.90 Unspecified dementia, unspecified severity, without behavioral disturbance, psychotic disturbance, mood disturbance, and anxiety; F17.210 Nicotine dependence, cigarettes, uncomplicated; G40.909 Epilepsy, unspecified, not intractable, without status epilepticus; K92.1 Melena; Z20.822 Contact with and (suspected) exposure to COVID-19; K59.00 Constipation, unspecified; S91.312A Laceration without foreign body, left foot, initial encounter; F15.10 Other stimulant abuse, uncomplicated; F11.10 Opioid abuse, uncomplicated; X58.XXXA Exposure to other specified factors, initial encounter; R62.7 Adult failure to thrive; L02.612 Cutaneous abscess of left foot; R13.10 Dysphagia, unspecified; Z78.1 Physical restraint status; Z82.49 Family history of ischemic heart disease and other diseases of the circulatory system; Z83.3 Family history of diabetes mellitus; Z99.11 Dependence on respirator [ventilator] status; Z68.22 Body mass index [BMI] 22.0-22.9, adult; Z71.51 Drug abuse counseling and surveillance of drug abuser; Y93.89 Activity, other specified; Y92.89 Other specified places as the place of occurrence of the external cause; Y99.8 Other external cause status
CPT/HCPCS: 31500; 36415; 36600; 71045; 71250; 73630; 73721; 74176; 76937; 80048; 80053; 80076; 80202; 80305; 80307; 80329; 81003; 82040; 82140; 82248; 82270; 82375; 82607; 82728; 82746; 82805; 82962; 83036; 83540; 83550; 83605; 83735; 84134; 84145; 84443; 84478; 84484; 85014; 85018; 85025; 85027; 85044; 85362; 85384; 86850; 86870; 86900; 86920; 87070; 87075; 87077; 87106; 87186; 87389; 87426; 92610; 93005; 93306; 93923; 93970; 94002; 94003; 94640; 94660; 94667; 95816; 97162; 99291; A6261; C1725; C9113; J0330; J0461; J0610; J0690; J0692; J0696; J1100; J1160; J1450; J1650; J1815; J2060; J2185; J2250; J2370; J2405; J2543; J2704; J2920; J3010; J3370; J3480; J3490; J7030; J7040; J7042; J7050; J7060; J7070; J7131; J7608; P9016; A4315